=== PATIENT | female | born 1990 | race Caucasian/White ===

== ENCOUNTER 2022-03-30 03:01 | Observation (INO) | payer OTHER, SELFPAY ==
[2022-03-30] VITALS (34 sets, daily range): BP systolic 97–131; BP diastolic 60–84; PULSE 64–129; RESP 14–28; TEMP 36.6–37.4; O2SAT 92–100; BMI 24.0
--- NOTE | ~2022-03-30 | XR_ITS ---
EXAMINATION: XR chest 1V portable DATE: 03/30/2022 03:56 INDICATION: Cough and shortness of breath. TECHNIQUE: A single frontal view of the chest was obtained. COMPARISON: None. FINDINGS: The chest demonstrates clear lungs without pneumonia, pleural effusion, or pneumothorax. Th e heart size is normal. Calcified right hilar and mediastinal lymph nodes are consistent with old gra nulomatous disease. IMPRESSION: 1. No acute cardiopulmonary disease. Reviewed, dictated and finalized at location A. [facility]
--- NOTE | 2022-03-30 03:13 | ECG_ITS ---
Measurements Intervals [place] Rate: 111 P: 60 GA: 124 QRS: 34 QRSD: 79 T: 36 QT: 313 QTc: 427 Interpretive Statements SINUS TACHYCARDIA BORDERLINE T WAVE ABNORMALITY- INFERIOR LEADS BASELINE ARTIFACT- I, II, III, AVR, AVL, AVF ABNORMAL ECG NO PREVIOUS ECG AVAILABLE FOR COMPARISON Electronically Signed On 03-30-2022 6:52:20 [employer] by Karsten Drew D.O.
--- NOTE | 2022-03-30 03:18 | ED.GENADULT ---
HPI - General Adult General Chief complaint: Shortness of Breath/Dyspnea Stated complaint: Shortness of breath Time Seen by Provider: 03/30/22 03:04 Source: patient and RN notes reviewed Mode of arrival: wheelchair Limitations: no limitations History of Present Illness HPI narrative: This is a 31 year old female with history of alpha 1- antitrypsin who presents for evaluation of shortness of breath. She states yesterday she developed body aches. Today she developed low grade fever, cough and runny nose. 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 She has tried her nebulizer and rescue inhaler. She is coughing up green sputum. She reports being hospitalized 2 months ago for respiratory failure and she was on antibiotics. She also states she traveled 3 hours yesterday to come work here. Related Data Home Medications Medication Instructions Recorded Confirmed albuterol sulfate 90 mcg/actuation 2 puff inhalation Q6H PRN sob 03/30/22 03/30/22 aerosol inhaler benzonatate 100 mg capsule 100 mg PO TID PRN Cough 03/30/22 03/30/22 budesonide-formoterol HFA 160 2 puff inhalation Q12H 03/30/22 03/30/22 mcg-4.5 mcg/actuation aerosol inhaler (Symbicort) guaifenesin 1,200 mg tablet, 1,200 mg PO BID 03/30/22 03/30/22 extended release 12 hr (Mucinex) ipratropium 0.5 mg-albuterol 3 mg 3 ml inhalation Q4H PRN sob 03/30/22 03/30/22 (2.5 mg base)/3 mL nebulization soln montelukast 10 mg tablet 10 mg PO HS 03/30/22 03/30/22 prednisone 50 mg tablet 50 mg PO Q12H 03/30/22 03/30/22 Allergies Allergy/AdvReac Type Severity Reaction Status Date / Time NSAIDS (Non-Steroidal Allergy Anaphylaxis Verified 03/30/22 03:15 Anti-Inflamma acetaminophen [From Tylenol] AdvReac Sneezing Verified 03/30/22 03:15 Review of Systems Constitutional: Constitutional: Reports fatigue, Reports fever(s) and Reports weakness ENT: Reports nasal congestion Cardiovascular: Cardiovascular: Denies syncope, Denies rapid heart rate, Denies irregular heart rhythm, Denies leg edema and Reports dyspnea Respiratory: Respiratory: Reports chest congestion, Reports cough, Denies hemoptysis, Denies excessive phlegm production, Reports dyspnea and Reports wheezing Gastrointestinal: Gastrointestinal: Denies abdominal pain, Denies hematochezia, Denies diarrhea and Denies vomiting Genitourinary: Genitourinary: Denies hematuria and Denies dysuria Musculoskeletal: Musculoskeletal: Reports myalgias, Denies joint swelling, Denies loss of height and Denies muscle weakness Neurologic: Denies syncope, Denies focal weakness and Denies weakness PMFSH Past Medical History Medical History (Updated 03/30/22 @ 21:43 by Gay Marin MD) Hwekm-0-fvmptpveeic deficiency Family History Family History (Updated 03/30/22 @ 06:44 by Lin Shields RN) Father Diabetes mellitus Social History Social History (Updated 03/30/22 @ 03:24 by Gay Marin MD) Smoking status: Never smoker Alcohol intake: current Drinks per week: 1 Substance use: never Substance use type: does not use Lack of Transportation: No Lack of Food: Never True Current Housing: I Have Housing Concerned About Future Housing: No Difficulty Paying Gas/Electric Bills: No Difficulty Paying for Meds: No Currently Unemployed: No Education: Associate Degree Difficulty w/ Childcare or Family Care: No Spiritual care concerns: No Exam Const: General: ill appearing Nutritional Appearance: well nourished Orientation/consciousness: patient oriented x3 HENMT: Head: normal to inspection Mouth: Yes Normal oral and palatal mucosa present, Yes lip normal and Yes moist mucous membranes Throat: posterior oropharynx normal Eyes: EOM: EOMs intact bilaterally Chest: Chest palpation & inspection: normal inspection of the chest Resp: Effort & Inspection: tachypneic and no use of accessory muscles Auscultation: rhonchi throu
[2022-03-30] MEDS: SODIUM CHLORIDE 0.9% IV 1,000 ML 999 ML IV CONT (03:22)
[2022-03-30] MEDS: methylPREDNISolone SOD SUCC 125 MG VIAL IV PUSH (03:23)
[2022-03-30] MEDS: IPRATROPIUM BR 0.02% INH SOLN 0.5 MG/2.5 ML VIAL 1 MG INHALATION ×2 (03:25→05:12)
[2022-03-30] MEDS: ALBUTEROL SULFATE NEB 2.5 MG/3 ML INH 10 MG INHALATION ×2 (03:25→05:13)
[2022-03-30 03:31] LABS: Basophils Absolute Auto 0.1 K/mm3 (0.0-0.1); Basophils Percent Auto 0.4 % (0.2-1.2); Eosinophils Absolute Auto 0.6 K/mm3 (0-0.3); Eosinophils Percent Auto 3.4 % (0-4.4); Hematocrit 42.8 % (37.0-47.0); Hemoglobin 14.3 g/dL (12.0-15.0); Immature Granulocyte Absolute 0.08 K/mm3 (0.00-0.031); Immature Granulocyte Percent A 0.5 % (0-0.5); Lymphocytes Absolute Auto 2.86 K/mm3 (0.9-3.2); Lymphocytes Percent Auto 17.4 % (18.3-44.2); Mean Corpuscular HGB Conc 33.4 g/dl (32-36); Mean Corpuscular Hemoglobin 28.3 pg (26-34); Mean Corpuscular Volume 84.6 fl (80-100); Mean Platelet Volume 11.1 fl (7.4-10.4); Monocytes Absolute Auto 1.2 K/mm3 (0.1-0.6); Monocytes Percent Auto 7.5 % (2.6-8.5); Neutrophils Absolute Auto 11.6 K/mm3 (1.3-6.7); Neutrophils Percent Auto 70.8 % (45.5-73.1); Platelet Count Result 333 k/mm3 (150-375); Red Blood Count 5.06 M/mm3 (4.2-5.4); Red Cell Distribution Width 12.8 % (11.5-14.5); White Blood Count 16.4 K/mm3 (4.5-10.0)
[2022-03-30 03:34] LABS: Alveolar/Arterial O2 Gradient 47.4 mmHg; Fractional Inspired Oxygen 21 %; HCO3 ABG 19.3 mEq/l (22.0-26.0); Methemoglobin ABG 0.3 %THb (0-1.5); Modified Allen's Test Pass; Oxygen Content ABG 19.1 %vol (16.0-22.0); Oxyhemoglobin 92.5 % THb (90.0-100.0); PCO2 ABG 27.8 mmHg (35.0-45.0); PO2 FiO2 Ratio Arterial Blood 3.29 %; Reduced Hemoglobin 6.2 %THb (0-5.0); Site Drawn LEFT RADIAL; Total Hemoglobin 14.7 g/dL (12.0-18.0)
[2022-03-30 03:53] LABS: Lactic Acid Reflex 1.4 mmol/L (0.7-2.0)
[2022-03-30 03:53] LABS: INR 1.2; Prothrombin Time 14.3 Seconds (11.1-14.7)
[2022-03-30 03:54] LABS: Partial Thromboplastin Time 33.3 SECONDS (22.3-36.8)
[2022-03-30 04:03] LABS: NT Pro B Type Natriuretic Pept 25 pg/mL (19.9-100)
[2022-03-30 04:17] LABS: Alanine Aminotransferase 21 U/L (6-35); Albumin Level 4.8 g/dL (3.5-5.1); Alkaline Phosphatase 87 U/L (38-126); Anion Gap 9 mmol/L (8-16); Aspartate Amino Transferase 28 U/L (14-36); Bilirubin,Total 1.2 mg/dL (0.2-1.3); Blood Urea Nitrogen 3 mg/dL (7-17); Calcium 9.4 mg/dL (8.4-10.2); Carbon Dioxide 21 mmol/L (22-30); Chloride 104 mmol/L (98-107); Estimated CRCL calculation 85 ml/min; Estimated Glomerular Filt Rate > 60; Glucose 103 mg/dL (65-110); Potassium 3.8 mmol/L (3.4-5.0); Sodium 134 mmol/L (137-145)
[2022-03-30 04:28] LABS: CRP 5.3 mg/dL (<1.0)
[2022-03-30 04:39] LABS: Troponin I < 0.012 ng/mL (0.000-0.034)
[2022-03-30 04:51] LABS: Influenza A QL RT-PCR Negative (Negative); Influenza B QL RT-PCR Negative (Negative); SARS-CoV-2 RNA PCR Negative
--- NOTE | 2022-03-30 05:07 | PM.IMHP ---
H&P: HPI History of Present Illness Date/Time: 03/30/22 05:07 Chief Complaint: Shortness of breath Narrative: This is a 31-year-old female with past medical history significant for alpha-1 antitrypsin deficiency, emphysema. Patient presents to the emergency room due to shortness and nasal of breath, wheezing, cough productive of green color sputum thick and copious. Patient also had a fever we which was low-grade. This has been ongoing for roughly 1 day denies any body aches and pains, no nausea, no vomiting, no abdominal pain. Preliminary workup was significant for WBC count 16,000, patient tested negative for influenza type A influenza type B and COVID-19. Patient is been admitted for further evaluation management and treatment. Review of Systems Review of Systems: Shortness of breath, wheezing, cough productive of greenish sputum copious amount thick secretions. Constitutional: Constitutional: Denies chills, Denies fatigue, Reports fever(s), Denies lethargy, Denies malaise, Denies night sweats, Reports poor appetite and Denies weakness Eyes: Eyes: Denies change in vision ENT: Denies dysphagia, Denies vertigo, Denies dizziness and Denies odynophagia Cardiovascular: Cardiovascular: Denies chest pain, Denies irregular heart rhythm, Denies leg edema and Denies radiating jaw, neck or arm pain Respiratory: Respiratory: Reports change in phlegm color, Reports chest congestion, Reports cough, Reports excessive phlegm production, Reports dyspnea and Reports wheezing Gastrointestinal: Gastrointestinal: Denies abdominal pain, Denies dyspepsia, Denies heartburn, Denies diarrhea, Denies nausea and Denies vomiting Genitourinary: Genitourinary: Denies dysuria Musculoskeletal: Musculoskeletal: Denies back pain, Denies myalgias, Denies arthralgias, Denies joint swelling and Denies muscle weakness Integumentary/Breasts: Skin/Breast: Denies rash Neurologic: Denies focal weakness and Denies Sensory deficit (Neuro) Psychiatric: Psychiatric: Reports no additional psychiatric complaints and Reports as per HPI Endocrine: Endocrine: Denies cold intolerance, Denies flushing, Denies heat intolerance, Denies polyphagia, Denies polydipsia and Denies palpitations Hematologic/Lymphatic: Hematologic/Lymphatic: Reports no additional hematologic/lymphatic complaints and Reports as per HPI Allergic/Immunologic: Allergic/Immunologic: Reports no additional allergic/immunologic complaints and Reports as per [facility] Past Medical History Medical History (Updated 03/30/22 @ 05:34 by Lee Cardoso MD) Ajrgv-7-[id number] deficiency Social History Social History (Updated 03/30/22 @ 03:24 by Gay Marin MD) Smoking status: Never smoker Meds Home Medications and Allergies Allergies Allergy/AdvReac Type Severity Reaction Status Date / Time NSAIDS (Non-Steroidal Allergy Anaphylaxis Verified 03/30/22 03:15 Anti-Inflamma acetaminophen [From Tylenol] AdvReac Sneezing Verified 03/30/22 03:15 Vital Signs Vital Signs - 24 hr 03/30/22 03:27 03/30/22 03:25 03/30/22 03:41 Temperature 99.4 F Pulse Rate 111 H 112 H Respiratory Rate 28 H 28 H Blood Pressure 129/84 Pulse Oximetry 94 Oxygen Delivery Room Air Room Air 03/30/22 03:40 03/30/22 04:08 03/30/22 04:24 Temperature Pulse Rate 116 H 64 118 H Respiratory Rate 22 H 15 17 Blood Pressure Pulse Oximetry 98 100 Oxygen Delivery 03/30/22 03:45 03/30/22 04:00 03/30/22 04:09 Temperature Pulse Rate 113 H 117 H 124 H Respiratory Rate 23 H 20 22 H Blood Pressure 126/78 Pulse Oximetry 98 97 98 Oxygen Delivery 03/30/22 04:13 03/30/22 04:15 03/30/22 04:21 Temperature Pulse Rate 120 H 129 H 123 H Respiratory Rate 21 H 22 H 21 H Blood Pressure 126/78 117/69 Pulse Oximetry 100 98 98 Oxygen Delivery 03/30/22 04:30 03/30/22 04:41 03/30/22 04:45 Temperature Pulse Rate 121 H 121 H 123 H Respiratory Rate 17 18 23 H Blood Pres
--- NOTE | 2022-03-30 06:26 | ADMGEN ---
This patient, Yari Aparicio, was admitted to Medical Room 254-01. Patient/family oriented to hospital policies and general routines including ID bracelet, bed and alarms, visiting hours, pain management, procedures, bathroom and other care routines, personal items, smoking policy, room service/diet, and visiting hours. Information on how to activate the Rapid Response Team has been discussed. Patient/Family are encouraged to report perceived risks to care and to ask questions if they do not understand what they are told or what they should do.
[2022-03-30] MEDS: SODIUM CHLORIDE 0.9% IV 1,000 ML 125 ML IV CONT ×2 (08:46→17:05)
[2022-03-30] MEDS: methylPREDNISolone SOD SUCC 40 MG VIAL IV PUSH ×3 (08:48→20:13)
[2022-03-30] MEDS: ALBUTEROL SULFATE NEB 2.5 MG/3 ML INH 5 MG INHALATION (10:02)
[2022-03-30] MEDS: IPRATROPIUM BR 0.02% INH SOLN 0.5 MG/2.5 ML VIAL INHALATION ×5 (10:02→23:53)
--- NOTE | 2022-03-30 11:41 | PM.IMPN ---
Progress Note: A&P Assessment and Plan (1) Emphysema due to [id number] deficiency: Code(s): J43.8 - Other emphysema; E88.01 - Qxqut-3-khmcyiferyr deficiency Status: Acute Assessment and Plan: Acute on chronic disease. Continue duonebs q.4 hours Antibiotics - IV Rocephin 1 gram Q 24 hours and Azithromycin 500 mg IV Q24 hours. She reports possible pseudomonas infection in the past, however, she does feel improved at this time. Consider escalation of antibiotics to cover pseudomonas if she stagnates or worsens clinically. Sputum culture Blood culture x2 pending Continue solu-medrol 40 IV Q6 hours Regular general diet Daily intake and output Supportive care Monitor CBC and vitals. Chest x-ray reviewed. Will hold off on further imaging unless patient's condition worsened. Plan CODE STATUS: FULL CODE Discharge destination: home when breathing improved. Time Spent With Patient Time with patient: 15 - 25 minutes Subjective Date/time seen: 03/30/22 11:41 Patient lying in bed. She reports her breathing feels slightly better today, still feels tight. She has been hospitalized previously for pneumonia and thinks she may have had a pseudomonas infection. Additionally, she reports previous lung nodules on imaging at another hospital. No records are available for imaging. Review of Systems Review of Systems: All systems reviewed & are unremarkable except as noted in HPI and below Exam Narrative: GENERAL:? Comfortable, no acute distress HEENT: Normocephalic. Pupils equal and round. moist mucous membranes NEURO: Alert and oriented to person, place and time. Speech clear. cooperative. NECK: No JVD. RESPIRATORY: RR unlabored at rest, even. Lung sounds inspiratory and expiratory wheezing in all elaine. Diminished bibasilar lobes. CARDIO: Normal S1 and S2 regular rate and rhythm. No murmurs, gallops or rubs. GI: soft, round, non tender to palpation, bowel sounds present, no guarding SKIN: Warm & dry. No rashes. Normal color for ethnicity. No cyanosis. EXTREMITIES: Grossly normal ROM. no edema, redness or tenderness. Dorsalis pedis pulses +2 bilaterally. Objective Data Vital Signs Vital Signs: Vital Signs - 24 hr 03/30/22 03:27 03/30/22 03:25 03/30/22 03:41 Temperature 99.4 F Pulse Rate 111 H 112 H Respiratory Rate 28 H 28 H Blood Pressure 129/84 Pulse Oximetry 94 Oxygen Delivery Room Air Room Air 03/30/22 03:40 03/30/22 04:08 03/30/22 04:24 Temperature Pulse Rate 116 H 64 118 H Respiratory Rate 22 H 15 17 Blood Pressure Pulse Oximetry 98 100 Oxygen Delivery 03/30/22 03:45 03/30/22 04:00 03/30/22 04:09 Temperature Pulse Rate 113 H 117 H 124 H Respiratory Rate 23 H 20 22 H Blood Pressure 126/78 Pulse Oximetry 98 97 98 Oxygen Delivery 03/30/22 04:13 03/30/22 04:15 03/30/22 04:21 Temperature Pulse Rate 120 H 129 H 123 H Respiratory Rate 21 H 22 H 21 H Blood Pressure 126/78 117/69 Pulse Oximetry 100 98 98 Oxygen Delivery 03/30/22 04:30 03/30/22 04:41 03/30/22 04:45 Temperature Pulse Rate 121 H 121 H 123 H Respiratory Rate 17 18 23 H Blood Pressure 97/74 L Pulse Oximetry 92 94 94 Oxygen Delivery 03/30/22 05:00 03/30/22 05:01 03/30/22 05:10 Temperature Pulse Rate 122 H 120 H 117 H Respiratory Rate 17 14 25 H Blood Pressure 124/64 Pulse Oximetry 95 93 Oxygen Delivery 03/30/22 05:15 03/30/22 05:21 03/30/22 05:30 Temperature Pulse Rate 120 H 108 H 107 H Respiratory Rate 18 16 23 H Blood Pressure 115/74 Pulse Oximetry 95 97 97 Oxygen Delivery 03/30/22 05:41 03/30/22 05:48 03/30/22 06:30 Temperature Pulse Rate 114 H 123 H 124 H Respiratory Rate 22 H 22 H 22 H Blood Pressure 125/60 Pulse Oximetry 97 Oxygen Delivery 03/30/22 06:10 03/30/22 06:58 03/30/22 08:00 Temperature 98.7 F Pulse Rate 119 H Respiratory Rate 20 Blood Pressure 119/78 Pulse Oximetry 100
[2022-03-30] MEDS: ALBUTEROL SULFATE NEB 2.5 MG/3 ML INH INHALATION ×4 (13:17→23:54)
[2022-03-30] MEDS: guaiFENesin 12 HR 600 MG TABCR 1200 MG PO (17:04)
[2022-03-30] MEDS: FLUTICASONE/SALMETEROL 230-21 MCG INHALER 1 PUFF 2 PUFF INHALATION (19:47)
[2022-03-30] MEDS: MONTELUKAST SODIUM 10 MG TABLET PO (20:13)
[2022-03-31] VITALS (14 sets, daily range): BP systolic 128–142; BP diastolic 66–87; PULSE 86–115; RESP 14–20; TEMP 36.4–36.7; O2SAT 94–99
[2022-03-31] MEDS: methylPREDNISolone SOD SUCC 40 MG VIAL IV PUSH ×4 (03:29→20:40)
[2022-03-31] MEDS: cefTRIAXone 2 GM in SODIUM CHLORIDE 0.9% IV 100 ML 200 ML IVPB (03:29)
[2022-03-31] MEDS: SODIUM CHLORIDE 0.9% IV 1,000 ML 125 ML IV CONT (03:30)
[2022-03-31] MEDS: ALBUTEROL SULFATE NEB 2.5 MG/3 ML INH INHALATION ×5 (04:05→21:12)
[2022-03-31] MEDS: IPRATROPIUM BR 0.02% INH SOLN 0.5 MG/2.5 ML VIAL INHALATION ×5 (04:05→21:11)
[2022-03-31 06:10] LABS: Basophils Percent Auto 0.2 % (0.2-1.2); Hemoglobin 12.4 g/dL (12.0-15.0); Immature Granulocyte Absolute 0.11 K/mm3 (0.00-0.031); Immature Granulocyte Percent A 0.9 % (0-0.5); Lymphocytes Percent Auto 5.7 % (18.3-44.2); Mean Corpuscular HGB Conc 32.6 g/dl (32-36); Mean Corpuscular Hemoglobin 28.4 pg (26-34); Mean Corpuscular Volume 87.2 fl (80-100); Mean Platelet Volume 11.5 fl (7.4-10.4); Monocytes Absolute Auto 0.6 K/mm3 (0.1-0.6); Monocytes Percent Auto 4.7 % (2.6-8.5); Neutrophils Absolute Auto 10.9 K/mm3 (1.3-6.7); Neutrophils Percent Auto 88.5 % (45.5-73.1); Platelet Count Result 267 k/mm3 (150-375); Red Blood Count 4.36 M/mm3 (4.2-5.4); Red Cell Distribution Width 12.8 % (11.5-14.5); White Blood Count 12.3 K/mm3 (4.5-10.0)
[2022-03-31 06:49] LABS: Alanine Aminotransferase 18 U/L (6-35); Albumin Level 3.8 g/dL (3.5-5.1); Alkaline Phosphatase 75 U/L (38-126); Anion Gap 6 mmol/L (8-16); Aspartate Amino Transferase 33 U/L (14-36); Bilirubin,Total 0.2 mg/dL (0.2-1.3); Blood Urea Nitrogen 8 mg/dL (7-17); Calcium 8.5 mg/dL (8.4-10.2); Carbon Dioxide 20 mmol/L (22-30); Chloride 113 mmol/L (98-107); Estimated CRCL calculation 98 ml/min; Estimated Glomerular Filt Rate > 60; Glucose 175 mg/dL (65-110); Potassium 4.1 mmol/L (3.4-5.0); Sodium 139 mmol/L (137-145)
--- NOTE | 2022-03-31 07:52 | PM.IMPN ---
Progress Note: A&P Assessment and Plan (1) Emphysema due to bhbht-6-bhrzimkucwy deficiency: Code(s): J43.8 - Other emphysema; E88.01 - Hdmbs-0-hzxdzbgahkp deficiency Status: Acute Assessment and Plan: Acute on chronic disease. Continue duonebs q.4 hours Antibiotic day 2 (started 03/30/22)- IV Rocephin 1 gram Q 24 hours and Azithromycin 500 mg IV Q24 hours. She reports possible pseudomonas infection in the past, however, she does feel improved at this time. Consider escalation of antibiotics to cover pseudomonas if she stagnates or worsens clinically. Blood culture x2 negative to date Continue solu-medrol 40 IV Q6 hours Regular general diet Daily intake and output Supportive care Monitor CBC and vitals- Afebrile, WBC trending down 16 to 12.3. Chest x-ray reviewed. Will hold off on further imaging unless patient's condition worsened. Plan CODE STATUS: FULL CODE Discharge destination: home when breathing improved. Time Spent With Patient Time with patient: 15 - 25 minutes Subjective Date/time seen: 03/31/22 07:52 Her breathing continues to feel better. She feels like she is moving more air, but still tight. Her sputum is thick and white. She denies chest pain. Her heart rate typically runs on the higher end, she states, however, she also does not take nebulizers as frequently, so this may be contributing. No palpitations. Review of Systems Review of Systems: All systems reviewed & are unremarkable except as noted in HPI and below Exam Narrative: GENERAL:? no acute distress HEENT: Normocephalic. Pupils equal and round. moist mucous membranes NEURO: AOx4. Speech clear. cooperative. NECK: No JVD. RESPIRATORY: RR unlabored at rest, even. Lung sounds end- expiratory wheezing anterior and posterior elaine right upper and lower lobes, left upper lobe end expiratory wheezing noted anteriorly. Improved air entry. No rhonchi or rales. Prolonged expiratory phase. CARDIO: Normal S1 and S2 regular rate and rhythm. No murmurs, gallops or rubs. GI: soft, round, non tender to palpation, bowel sounds present SKIN: Warm & dry. No rashes. No cyanosis. EXTREMITIES: Grossly normal ROM. no edema. Objective Data Vital Signs Vital Signs: Vital Signs - 24 hr 03/30/22 08:00 03/30/22 10:02 03/30/22 10:15 Temperature Pulse Rate 114 H 118 H Respiratory Rate 24 H 22 H Blood Pressure Pulse Oximetry Oxygen Delivery Room Air 03/30/22 13:10 03/30/22 13:20 03/30/22 14:00 Temperature 97.8 F Pulse Rate 117 H 119 H 109 H Respiratory Rate 24 H 22 H 20 Blood Pressure 116/74 Pulse Oximetry 100 Oxygen Delivery 03/30/22 17:18 03/30/22 19:48 03/30/22 20:03 Temperature Pulse Rate 109 H 111 H 114 H Respiratory Rate 18 20 20 Blood Pressure Pulse Oximetry Oxygen Delivery 03/30/22 20:03 03/30/22 20:00 03/30/22 21:00 Temperature 98.1 F Pulse Rate 111 H Respiratory Rate 16 Blood Pressure 131/72 Pulse Oximetry 100 99 Oxygen Delivery Room Air Room Air 03/30/22 23:54 03/31/22 00:06 03/31/22 04:05 Temperature Pulse Rate 105 H 111 H 103 H Respiratory Rate 20 20 20 Blood Pressure Pulse Oximetry Oxygen Delivery 03/31/22 04:20 03/31/22 04:00 Temperature 98.1 F Pulse Rate 111 H 110 H Respiratory Rate 20 14 Blood Pressure 129/66 Pulse Oximetry 95 Oxygen Delivery Intake/Output Intake/Output: Intake & Output 03/28/22 03/29/22 03/30/22 03/31/22 23:59 23:59 23:59 23:59 Intake Total 2300 3050 Balance 2300 3050 Meds/Results Medications: Active Medications Generic Name Dose Route Start Last Admin Trade Name Freq PRN Reason Stop Dose Admin Albuterol 2.5 mg 03/30/22 12:00 03/31/22 04:05 Albuterol Sulfate Neb 2.5 Mg/3 Ml Inh INHALATION 2.5 mg Q4HRT JOSE Administration Benzonatate 100 mg 03/30/22 10:21 Benzonatate 100 Mg Capsule PO TID PRN Cough Guaifenesin 1,200 mg 03/30/22 17:00 03/30/22
[2022-03-31] MEDS: guaiFENesin 12 HR 600 MG TABCR 1200 MG PO ×2 (08:04→16:15)
[2022-03-31] MEDS: FLUTICASONE/SALMETEROL 230-21 MCG INHALER 1 PUFF 2 PUFF INHALATION ×2 (08:47→21:30)
[2022-03-31] MEDS: MONTELUKAST SODIUM 10 MG TABLET PO (20:40)
[2022-04-01] VITALS (9 sets, daily range): BP systolic 121; BP diastolic 75; PULSE 87–108; RESP 18–21; TEMP 36.2; O2SAT 96–100
[2022-04-01] MEDS: ALBUTEROL SULFATE NEB 2.5 MG/3 ML INH INHALATION ×3 (00:09→08:40)
[2022-04-01] MEDS: IPRATROPIUM BR 0.02% INH SOLN 0.5 MG/2.5 ML VIAL INHALATION ×3 (00:09→08:40)
[2022-04-01] MEDS: methylPREDNISolone SOD SUCC 40 MG VIAL IV PUSH (03:48)
[2022-04-01] MEDS: cefTRIAXone 2 GM in SODIUM CHLORIDE 0.9% IV 100 ML 200 ML IVPB (03:49)
[2022-04-01] MEDS: guaiFENesin 12 HR 600 MG TABCR 1200 MG PO (08:36)
[2022-04-01] MEDS: FLUTICASONE/SALMETEROL 230-21 MCG INHALER 1 PUFF 2 PUFF INHALATION (08:57)
--- NOTE | 2022-04-01 10:58 | PM.DS ---
DS: Admitting Diagnosis Discharge Date 04/01/2022 1058 Admitting Diagnosis Acute exacerbation COPD DS: Discharge Diagnosis Discharge Diagnosis (1) Emphysema due to kjyyq-[id number] deficiency: Code(s): J43.8 - Other emphysema; E88.01 - Cenxa-6-rwdozqxxqqr deficiency Status: Acute Assessment and Plan: Acute on chronic disease. Continue duonebs q.4 hours Treated with IV Rocephin 1 gram Q 24 hours and Azithromycin 500 mg IV Q24 hours 03/30-04/01/22, then transitioned to oral cefuroxime 500 mg PO BID x 4 more days for 7-day antibiotic course. Blood culture x2 negative to date Treated with solu-medrol 40 IV Q6 hours 03/30-04/01/22. Clinically improved and transitioned to prednisone taper at discharge. Monitor CBC and vitals- Afebrile, WBC trending down 16 to 12.3. 03/30/22 Chest x-ray: No acute cardiopulmonary disease except patient with leukocytosis and increased sputum quantity and change in color. (2) Pneumonia: Qualifiers: Pneumonia type: due to unspecified organism Code(s): J18.9 - Pneumonia, unspecified organism Status: Acute Assessment and Plan: As above DS: Summary Hospital Course Reason for hospitalization: Shortness of breath, acute COPD exacerbation Hospital Course: Yari Aparicio is a 31-year-old female with alpha-1 antitrypsin deficiency emphysema.? She presented to the emergency room for evaluation of shortness of breath, wheezing, and cough with copious, thick green sputum.? She reported low-grade fever, as well. Symptoms were present for approximately 1 day. She denied body aches and pains, nausea, vomiting, or abdominal pain.? Preliminary workup was significant for WBC count 16,000. She tested negative for influenza type A, influenza type B and COVID-19.? She was admitted to the medical floor for further management. She was treated with scheduled duonebs Q4 hours, solu-medrol IV 40 mg Q6 hours, empiric Rocephin 1 gram Q24 hours 03/30-04/01 and Azithromycin 500 mg IV 03/30-04/01. She was transitioned to oral prednisone taper 80 mg x 3 days, 60 mg x 3 days, 40 mg x 3 days, 20 mg x 3 days and oral cefuroxime 500 mg PO BID x 4 more days. She was discharged home in stable condition with improved wheezing and respiratory symptoms. Status at Discharge Cognitive/behavioral status at discharge: Awake, AOx4 Functional status at discharge: independent ambulation Overall status at discharge: patient is progressing back to baseline Time Spent with Patient Time attestation: Total time spent providing and/or coordinating discharge services: Time spent: Greater than 30 minutes Exam Narrative: GENERAL:? no acute distress. Temp 97.2F, HR 106, RR 20, BP 121/75, spO2 96% room air. HEENT: Normocephalic. Pupils equal and round. moist mucous membranes NEURO: AOx4. Speech clear. cooperative. NECK: No JVD. RESPIRATORY: RR unlabored at rest, even. Lung sounds mildly diminished in all elaine bilaterally, improved air entry. No wheezing, rhonchi or rales. CARDIO: Normal S1 and S2 regular rate and rhythm. No murmurs, gallops or rubs. GI: soft, round, non tender to palpation, bowel sounds present SKIN: Warm & dry. No rashes. No cyanosis. EXTREMITIES: Grossly normal ROM. no edema. DS: Data Data Completed and Pending Labs on day of discharge: Preliminary micro results at discharge 03/30/22 03:39 Blood Culture - Preliminary Blood 03/30/22 03:39 Blood Culture - Preliminary Blood Imaging Radiologist's impression: Chest X-Ray? 03/30/22 06:21 IMPRESSION: 1. No acute cardiopulmonary disease. ? Discharge Plan Discharge Attending physician on discharge: Simi Schroeder Consulting providers: Ary Whiteside ; Karsten Drew ; Randy Castillo V. Discharging Clinician: Ary Whiteside Anticipated Discharge Date/Time: 04/01/22 10:49 Patient Disposition: Home, Self-Care Activity: as tolerated Diet: regular Discharge Instructions: Activity:? Gr
== END 2022-04-01 11:49 | disposition home or self-care (01) ==
LOC: ANHED 03:34 → ANH2MED 21:07
PROVIDERS: Admitting Provider Internal Medicine; Emergency Provider General Practice; Visit Provider Student in an Organized Health Care Education/Training Program
DX: J43.8 Other emphysema (principal); E88.01 Alpha-1-antitrypsin deficiency; R53.1 Weakness; R50.9 Fever, unspecified; D72.829 Elevated white blood cell count, unspecified; R94.31 Abnormal electrocardiogram [ECG] [EKG]; F10.90 Alcohol use, unspecified, uncomplicated; Z79.51 Long term (current) use of inhaled steroids; Z79.52 Long term (current) use of systemic steroids; Z79.899 Other long term (current) drug therapy
CPT/HCPCS: 36415; 36600; 71045; 80053; 82375; 82805; 83050; 83605; 83880; 84484; 85025; 85610; 85730; 86140; 87040; 87636; 93005; 94640; 96361; 96365; 96366; 96367; 96375; 96376; 99285; A9270; G0378; J0456; J0696; J2920; J2930; J7030

== ENCOUNTER 2022-05-27 05:08 | Inpatient (IN) | payer OTHER, SELFPAY ==
[2022-05-27] VITALS (52 sets, daily range): BP systolic 99–145; BP diastolic 59–89; PULSE 84–436; RESP 11–38; TEMP 36.3–37.7; O2SAT 91–100; BMI 24.0
--- NOTE | ~2022-05-27 | XR_ITS ---
Clinical Indication: Pneumonia PA and lateral views of the chest: Comparison: 1223 Findings: Suspected focal hazy opacity in the right upper lobe. Left lung clear. Cardiomediastinal s ilhouette is within normal limits. Stable calcified right paratracheal lymph nodes. Bones and soft ti ssues are unremarkable. Impression: Suspected focal hazy opacity right upper lobe, consistent with pneumonia seen on recent CT dated 05/27. Stable calcified right paratracheal lymph nodes. Reviewed, dictated and finalized at location . Impression: Suspected focal hazy opacity right upper lobe, consistent with pneumonia seen o n recent CT dated 05/27/2022. Stable calcified right paratracheal lymph nodes.
--- NOTE | ~2022-05-27 | XR_ITS ---
EXAMINATION: XR chest 1V portable DATE: 05/27/2022 05:54 INDICATION: Cough TECHNIQUE: frontal view of the chest was obtained. COMPARISON: Chest radiograph dated 03/30/2022 FINDINGS: Subtle opacity in the right upper lung zone. Mild curvilinear discoid atelectasis at the left lung ba se. No pleural effusion or pneumothorax. The cardiomediastinal silhouette is normal. Calcified medias tinal lymph nodes consistent with old granulomatous disease. IMPRESSION: 1. Subtle opacity right upper lung zone suspicious for pneumonia. Reviewed, dictated and finalized at location A.
--- NOTE | ~2022-05-27 | CT_ITS ---
EXAMINATION: CTA chest PE protocol DATE: 05/27/2022 10:55 INDICATION: Dyspnea TECHNIQUE: Computed tomography (CT) pulmonary angiogram of the chest was performed with 100 mL Omnipa que-350 intravenous contrast. Additional 3D reconstructions utilizing coronal maximum intensity proje ction (MIP) were performed. The dose-length product was 514.59 mGy-cm. COMPARISON: None FINDINGS: Good contrast opacification of the pulmonary arteries. There is moderate streak artifact from dense c ontrast in the superior vena cava and right atrium. Mild scattered respiratory motion artifact. This decreases sensitivity in some of the smaller subsegmental pulmonary arteries. No pulmonary embolism. There are patchy groundglass opacities most prominent in the right upper and left lower lobes and to lesser degree in the left upper lobe, right lower lobe and lingula. No septal line thickening to sugg est pulmonary edema. No pleural effusion or pneumothorax. Heart size is normal. No pericardial effusi on. Thoracic aorta is normal in caliber with no dissection. Visualized upper abdomen is unremarkable. Mild thoracic spondylosis. IMPRESSION: 1. No pulmonary embolism. 2. Scattered mild bilateral patchy airspace opacities consistent with pneumonia. Reviewed, dictated and finalized at location A. IMPRESSION: 1. No pulmonary embolism. 2. Scattered mild bilateral patchy airspace opacities consistent with pneumonia .
--- NOTE | 2022-05-27 05:37 | ED.GENADULT ---
HPI - General Adult General Chief complaint: Upper Respiratory Infection Stated complaint: SOB, bodyaches, fever Time Seen by Provider: 05/27/22 05:30 History of Present Illness HPI narrative: Patient 31-year-old female who presents the emergency department with chief complaint of fever cough generalized malaise. Patient reports about 1 week ago she started having symptoms and I did several home COVID test these were somewhat positive somewhere negative patient had a PCR test done at [facility] that tested negative patient states that she has continued with coughing generalized body aches has pain in her right ear and a sore throat. Patient reports that she has not taken any Tylenol today as she usually takes this with Benadryl as when she takes p.o. Tylenol she sneezes Related Data Home Medications Medication Instructions Recorded Confirmed albuterol sulfate 90 mcg/actuation 2 puff inhalation Q6H PRN sob 03/30/22 03/30/22 aerosol inhaler benzonatate 100 mg capsule 100 mg PO TID PRN Cough 03/30/22 03/30/22 budesonide-formoterol HFA 160 2 puff inhalation Q12H 03/30/22 03/30/22 mcg-4.5 mcg/actuation aerosol inhaler (Symbicort) guaifenesin 1,200 mg tablet, 1,200 mg PO BID 03/30/22 03/30/22 extended release 12 hr (Mucinex) ipratropium 0.5 mg-albuterol 3 mg 3 ml inhalation Q4H PRN sob 03/30/22 03/30/22 (2.5 mg base)/3 mL nebulization soln montelukast 10 mg tablet 10 mg PO HS 03/30/22 03/30/22 Allergies Allergy/AdvReac Type Severity Reaction Status Date / Time NSAIDS (Non-Steroidal Allergy Anaphylaxis Verified 03/30/22 03:15 Anti-Inflamma acetaminophen [From Tylenol] AdvReac Sneezing Verified 03/30/22 03:15 Review of Systems Review of Systems: A 10 system review of systems was completed on the patient and is negative except for what is stated in the HPI. Nursing and ancillary documentation was reviewed. [facility] Past Medical History Medical History [id number] deficiency Family History Family History Father Diabetes mellitus Social History Social History Smoking status: Never smoker Alcohol intake: current Drinks per week: 1 Substance use: never Substance use type: does not use Lack of Transportation: No Lack of Food: Never True Current Housing: I Have Housing Concerned About Future Housing: No Difficulty Paying Gas/Electric Bills: No Difficulty Paying for Meds: No Currently Unemployed: No Education: Associate Degree Difficulty w/ Childcare or Family Care: No Spiritual care concerns: No Exam Narrative: GENERAL: Well-appearing, well-nourished, and in no acute distress. HEAD: Normocephalic, atraumatic. EYES: PERRLA and EOMI. ENT: Nares clear, no rhinorrhea or epistaxis. Mucous membranes moist. Right tympanic membrane is erythematous NECK: Supple. CHEST: Clear to auscultation. No respiratory distress. HEART: Tachycardic rate and rhythm. No murmur heard. Normal peripheral pulses. ABDOMEN: Soft, nontender, nondistended, normal active bowel sounds. EXTREMITIES: Normal range of motion. No edema. SKIN: Warm, dry, no rash. NEURO: No focal deficits. Alert and oriented x3. PSYCH: Normal mood and affect. Course Vital Signs Vital signs: Vital Signs Temperature 37.7 C H 05/27/22 05:13 Pulse Rate 128 H 05/27/22 05:13 Respiratory Rate 24 H 05/27/22 05:13 Blood Pressure 130/87 05/27/22 05:13 Pulse Oximetry 97 05/27/22 05:13 Oxygen Delivery Room Air 05/27/22 05:13 Temperature 37.7 C H 05/27/22 05:13 Pulse Rate 114 H 05/27/22 06:38 Respiratory Rate 11 L 05/27/22 06:38 Blood Pressure 107/82 05/27/22 06:38 Pulse Oximetry 99 05/27/22 07:08 Oxygen Delivery High Flow Nasal Cannula 05/27/22 07:08 Oxygen Flow Rate 50 05/27/22 07:08
[2022-05-27] MEDS: SODIUM CHLORIDE 0.9% IV 1,000 ML 999 ML IV CONT ×2 (05:58→07:39)
[2022-05-27] MEDS: BENZONATATE 100 MG CAPSULE 200 MG PO (06:01)
[2022-05-27 06:16] LABS: Basophils Absolute Auto 0.1 K/mm3 (0.0-0.1); Basophils Percent Auto 0.5 % (0.2-1.2); Eosinophils Absolute Auto 0.9 K/mm3 (0-0.3); Eosinophils Percent Auto 4.8 % (0-4.4); Hemoglobin 14.3 g/dL (12.0-15.0); Immature Granulocyte Absolute 0.13 K/mm3 (0.00-0.031); Immature Granulocyte Percent A 0.7 % (0-0.5); Lymphocytes Absolute Auto 1.59 K/mm3 (0.9-3.2); Lymphocytes Percent Auto 8.2 % (18.3-44.2); Mean Corpuscular HGB Conc 33.3 g/dl (32-36); Mean Corpuscular Hemoglobin 28.3 pg (26-34); Mean Corpuscular Volume 85.1 fl (80-100); Mean Platelet Volume 10.9 fl (7.4-10.4); Monocytes Percent Auto 5.1 % (2.6-8.5); Neutrophils Absolute Auto 15.7 K/mm3 (1.3-6.7); Neutrophils Percent Auto 80.7 % (45.5-73.1); Platelet Count Result 310 k/mm3 (150-375); Red Blood Count 5.05 M/mm3 (4.2-5.4); Red Cell Distribution Width 12.9 % (11.5-14.5); White Blood Count 19.4 K/mm3 (4.5-10.0)
[2022-05-27 06:24] LABS: Lactic Acid Reflex 1.1 mmol/L (0.7-2.0)
[2022-05-27 06:25] LABS: Alanine Aminotransferase 27 U/L (6-35); Albumin Level 4.5 g/dL (3.5-5.1); Alkaline Phosphatase 77 U/L (38-126); Anion Gap 8 mmol/L (8-16); Aspartate Amino Transferase 30 U/L (14-36); Bilirubin,Total 0.6 mg/dL (0.2-1.3); Blood Urea Nitrogen 9 mg/dL (7-17); Calcium 9.3 mg/dL (8.4-10.2); Carbon Dioxide 21 mmol/L (22-30); Chloride 103 mmol/L (98-107); Estimated CRCL calculation 85 ml/min; Estimated Glomerular Filt Rate > 60; Glucose 120 mg/dL (65-110); Sodium 132 mmol/L (137-145)
[2022-05-27 06:27] LABS: Influenza A QL RT-PCR Negative (Negative); Influenza B QL RT-PCR Negative (Negative); SARS-CoV-2 RNA PCR Negative
[2022-05-27] MEDS: PROCHLORPERAZINE EDISYLATE 10 MG/2 ML VIAL IV PUSH (06:40)
[2022-05-27] MEDS: ALBUTEROL SULFATE NEB 2.5 MG/3 ML INH INHALATION ×5 (06:42→22:01)
[2022-05-27] MEDS: IPRATROPIUM BR 0.02% INH SOLN 0.5 MG/2.5 ML VIAL INHALATION ×5 (06:42→21:50)
[2022-05-27 06:50] LABS: Strep Group A RT-PCR NOT DETECTED (Negative)
[2022-05-27] MEDS: methylPREDNISolone SOD SUCC 125 MG VIAL IV PUSH (06:56)
[2022-05-27] MEDS: LORazepam INJ (*CRX) 2 MG/ML VIAL 0.5 MG IV PUSH ×2 (07:02→07:39)
[2022-05-27] MEDS: MAGNESIUM SULF 2 GM/WATER 50ML 2 GM/50 ML BAG IVPB (07:38)
[2022-05-27] MEDS: ALBUTEROL SULFATE NEB 2.5 MG/3 ML INH 10 MG INHALATION (07:47)
[2022-05-27] MEDS: IPRATROPIUM BR 0.02% INH SOLN 0.5 MG/2.5 ML VIAL 2 MG INHALATION (07:47)
[2022-05-27] MEDS: SODIUM CHLORIDE 0.9% IV 1,000 ML 125 ML IV CONT ×2 (08:59→16:29)
[2022-05-27 10:03] LABS: Beta HCG Quantitative < 2.39 mIU/ML
--- NOTE | 2022-05-27 10:50 | PC.NURSE ---
RT HERE TO ASSIST WITH TRANSPORT. PT TAKEN TO CT SCAN THEN WILL GO DIRECTLY UP TO 232
[2022-05-27] MEDS: methylPREDNISolone SOD SUCC 125 MG VIAL 60 MG IV PUSH ×2 (13:06→17:43)
--- NOTE | 2022-05-27 14:02 | PM.IMHP ---
H&P: HPI History of Present Illness Date/Time: 05/27/22 14:02 Chief Complaint: Upper respiratory infection Narrative: This is a 31-year-old female patient who has had a fever cough and generalized malaise for over 1 week. The patient stated that her symptoms actually started about 2 weeks ago. The patient stated initially she took a COVID test was positive then she has taken some since then have been negative. The patient has been taking Mucinex, Benadryl and an inhaler at home without relief. The patient stated that she did not sleep very well last night at all. She was having difficulty breathing. The patient has been taking Tylenol as well. Her white count is 19.4. Neutrophils 80.7. Sodium is 132. Influenza a B RSV and COVID are all negative. Group strep is negative as well. Chest x-ray was read as Subtle opacity right upper lung zone suspicious for pneumonia. Chest CTA was read as. No pulmonary embolism. 2. Scattered mild bilateral patchy airspace opacities consistent with pneumonia. The patient was given normal saline, Compazine, benzonatate, neb treatments, Tylenol, Rocephin, magnesium, Ativan, and Solu-Medrol. Patient's settings are 12/6. Rate is 12 with 35%. The patient stated that she is feeling much better. The patient is being admitted to inpatient on the date of service of 05/27/2022. Review of Systems Review of Systems: See HPI All systems reviewed & are unremarkable except as noted in HPI and below Constitutional: Constitutional: Reports as per HPI and Reports no additional constitutional complaints Eyes: Eyes: Reports as per HPI and Reports no additional eye complaints ENT: Reports system reviewed and no additional complaints, except as documented and Reports Normal hearing present Cardiovascular: Cardiovascular: Reports no additional cardiovascular complaints Respiratory: Respiratory: Reports no additional respiratory complaints and Reports no additional respiratory complaints Gastrointestinal: Gastrointestinal: Reports as per HPI and Reports no additional gastrointestinal complaints Musculoskeletal: Musculoskeletal: Reports no additional musculoskeletal complaints Integumentary/Breasts: Skin/Breast: Reports system reviewed and no additional complaints, except as docu and Reports as per HPI Neurologic: Reports system reviewed and no additional complaints, except as documented, Reports as per HPI and Reports Normal hearing present Psychiatric: Psychiatric: Reports no additional psychiatric complaints and Reports as per HPI Endocrine: Endocrine: Reports no additional endocrine complaints Hematologic/Lymphatic: Hematologic/Lymphatic: Reports no additional hematologic/lymphatic complaints Allergic/Immunologic: Allergic/Immunologic: Reports no additional allergic/immunologic complaints [facility] Past Medical History Medical History (Updated 05/27/22 @ 16:45 by Muara Cook NP) [id number] deficiency Asthma Surgical History Surgical History (Updated 05/27/22 @ 16:46 by Maura Cook NP) H/O dilation and curettage H/O hand surgery H/O nasal polypectomy Family History Family History Father Diabetes mellitus Social History Social History (Updated 05/27/22 @ 16:46 by Maura Cook NP) Social History: Patient is single and has 2 children. 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 Code status full code Smoking status: Never smoker Alcohol intake: unknown Drinks per week: 1 Substance use: unknown Substance use type: does not use Lack of Transportation: No Lack of Food: Never True Current Housing: I Have Housing Concerned About Future Housing: No Difficulty Paying Gas/Electric Bills: No Difficulty Paying for Meds: No Currently Unemployed: No Education: Associate Degree Difficulty w/ Childcare or Family Care: No Spiritual care concerns: No Meds Home Medications and Allergies
--- NOTE | 2022-05-27 14:23 | ADMGEN ---
This patient, Yari Aparicio, was admitted to IMU Room 232-01 at 1055. Patient/family oriented to hospital policies and general routines including ID bracelet, bed and alarms, visiting hours, pain management, procedures, bathroom and other care routines, personal items, smoking policy, room service/diet, and visiting hours. Information on how to activate the Rapid Response Team has been discussed. Patient/Family are encouraged to report perceived risks to care and to ask questions if they do not understand what they are told or what they should do.
[2022-05-27] MEDS: guaiFENesin 12 HR 600 MG TABCR 1200 MG PO ×2 (17:42→20:55)
[2022-05-27 19:29] LABS: Appearance Urine Clear (Clear); Bilirubin Urine Negative (Negative); Blood Urine Negative (Negative); Color Urine Yellow (Yellow); Glucose Urine UA 1+ mg/dL (Negative); Ketones Urine Negative (Negative); Leukocyte Esterase Ur Negative LEU/UL (Negative); Nitrate Urine Negative (Negative); Protein Urine Negative (Negative); Specific Grav Ur 1.005 (1.001-1.035); Urobilinogen Urine 0.2 mg/dL (<2.0); pH Urine 7.5 (5.0-9.0)
[2022-05-27 19:32] LABS: Add Urine Microscopic? NO
[2022-05-28] VITALS (21 sets, daily range): BP systolic 112–131; BP diastolic 63–86; PULSE 88–120; RESP 12–22; TEMP 35.9–36.7; O2SAT 94–98
[2022-05-28] MEDS: methylPREDNISolone SOD SUCC 125 MG VIAL 60 MG IV PUSH ×3 (00:09→15:12)
[2022-05-28] MEDS: IPRATROPIUM BR 0.02% INH SOLN 0.5 MG/2.5 ML VIAL INHALATION ×5 (04:22→20:51)
[2022-05-28] MEDS: ALBUTEROL SULFATE NEB 2.5 MG/3 ML INH INHALATION ×5 (04:22→20:51)
[2022-05-28 05:01] LABS: Basophils Percent Auto 0.2 % (0.2-1.2); Hematocrit 41.1 % (37.0-47.0); Hemoglobin 13.9 g/dL (12.0-15.0); Immature Granulocyte Absolute 0.09 K/mm3 (0.00-0.031); Immature Granulocyte Percent A 0.6 % (0-0.5); Lymphocytes Absolute Auto 0.83 K/mm3 (0.9-3.2); Lymphocytes Percent Auto 5.2 % (18.3-44.2); Mean Corpuscular HGB Conc 33.8 g/dl (32-36); Mean Corpuscular Hemoglobin 28.5 pg (26-34); Mean Corpuscular Volume 84.4 fl (80-100); Mean Platelet Volume 10.9 fl (7.4-10.4); Monocytes Absolute Auto 0.4 K/mm3 (0.1-0.6); Monocytes Percent Auto 2.7 % (2.6-8.5); Neutrophils Absolute Auto 14.4 K/mm3 (1.3-6.7); Neutrophils Percent Auto 91.3 % (45.5-73.1); Platelet Count Result 276 k/mm3 (150-375); Red Blood Count 4.87 M/mm3 (4.2-5.4); Red Cell Distribution Width 12.7 % (11.5-14.5); White Blood Count 15.8 K/mm3 (4.5-10.0)
[2022-05-28 05:13] LABS: Lactic Acid Reflex 1.9 mmol/L (0.7-2.0)
[2022-05-28 05:15] LABS: Alanine Aminotransferase 26 U/L (6-35); Albumin Level 4.2 g/dL (3.5-5.1); Alkaline Phosphatase 69 U/L (38-126); Anion Gap 6 mmol/L (8-16); Aspartate Amino Transferase 26 U/L (14-36); Bilirubin,Total 0.3 mg/dL (0.2-1.3); Blood Urea Nitrogen 6 mg/dL (7-17); Calcium 9.1 mg/dL (8.4-10.2); Carbon Dioxide 21 mmol/L (22-30); Chloride 109 mmol/L (98-107); Estimated CRCL calculation 115 ml/min; Estimated Glomerular Filt Rate > 60; Glucose 152 mg/dL (65-110); Magnesium 2.1 mg/dL (1.6-2.3); Sodium 136 mmol/L (137-145)
[2022-05-28 07:46] LABS: Free T4 Free Thyroxine Reflex 1.18 ng/dL (0.78-2.19)
[2022-05-28 09:15] LABS: Total Triiodothyronine (T3) 1.07 NG/ML (0.97-1.69)
[2022-05-28] MEDS: ENOXAPARIN 40 MG/0.4 ML SYRINGE SUB-Q (09:57)
[2022-05-28] MEDS: guaiFENesin 12 HR 600 MG TABCR 1200 MG PO ×2 (09:57→20:27)
--- NOTE | 2022-05-28 17:35 | PM.IMPN ---
Progress Note: A&P Assessment and Plan (1) Pneumonia: Qualifiers: Pneumonia type: due to unspecified organism Code(s): J18.9 - Pneumonia, unspecified organism Status: Acute Assessment and Plan: Continue with azithromycin Rocephin Continue with nebulizer treatment Titrate antibiotic according to culture and sensitive blood and sputum cultures are pending 05/28/2022 interval history: 31-year-old female with no significant history cardiopulmonary presented with shortness of breath hypoxic is found to have pneumonia, patient most likely has community-acquired pneumonia being treated with a ceftriaxone and azithromycin upon arrival for some wheezing patient was started on methylprednisone her symptoms improved will taper it down to prednisone today will continue to monitor repeat x-ray tomorrow and further recommendation to follow. (2) Asthma: Code(s): J45.909 - Unspecified asthma, uncomplicated Status: Acute Assessment and Plan: The patient was given magnesium in the emergency room. The patient is off of the BiPAP now. She has interest in eating so I will stop her IV fluids. Subjective Date/time seen: 05/28/22 17:35 Upper respiratory infection HPI-Narrative: This is a 31-year-old female patient who has had a fever cough and generalized malaise for over 1 week.? The patient stated that her symptoms actually started about 2 weeks ago.? The patient stated initially she took a COVID test was positive then she has taken some since then have been negative.? The patient has been taking Mucinex, Benadryl and an inhaler at home without relief.? The patient stated that she did not sleep very well last night at all.? She was having difficulty breathing.? The patient has been taking Tylenol as well.? Her white count is 19.4.? Neutrophils 80.7.? Sodium is 132.? Influenza a B RSV and COVID are all negative.? Group strep is negative as well.? Chest x-ray was read as?Subtle opacity right upper lung zone suspicious for pneumonia.? Chest CTA was read as. No pulmonary embolism. 2. Scattered mild bilateral patchy airspace opacities consistent with pneumonia. The patient was given normal saline, Compazine, benzonatate, neb treatments, Tylenol, Rocephin, magnesium, Ativan, and Solu-Medrol.? Patient's settings are 12/6.? Rate is 12 with 35%.? The patient stated that she is feeling much better.? 05/28/2022 interval history: 31-year-old female with no significant history cardiopulmonary presented with shortness of breath hypoxic is found to have pneumonia, patient most likely has community-acquired pneumonia being treated with a ceftriaxone and azithromycin upon arrival for some wheezing patient was started on methylprednisone her symptoms improved will taper it down to prednisone today will continue to monitor repeat x-ray tomorrow and further recommendation to follow. Review of Systems Review of Systems: All systems reviewed & are unremarkable except as noted in HPI and below Exam Narrative: Patient is comfortable, NAD HEENT: eyes are clear and none icteric LUNGS: normal respiratory effort ABD: not distended Lower extremities: no edema SKIN: nonjaundiced Neuro: grossly intact. Objective Data Vital Signs Vital Signs: Vital Signs - 24 hr 05/27/22 18:00 05/27/22 20:00 05/27/22 20:00 Temperature 97.6 F Pulse Rate 100 113 H Respiratory Rate 20 Blood Pressure 115/59 L Pulse Oximetry 98 97 Oxygen Delivery Nasal Cannula Oxygen Flow Rate 2 05/27/22 20:00 05/27/22 21:50 05/27/22 22:05 Temperature Pulse Rate 115 H 84 89 Respiratory Rate 18 18 Blood Pressure Pulse Oximetry Oxygen Delivery Oxygen Flow Rate 05/27/22 22:08 05/27/22 22:00 05/27/22 23:39 Temperature 98.0 F Pulse Rate 109 H 115 H Respiratory Rate 20 Blood Pressure 122/67 Pulse Oximetry 96 98 Oxygen Delivery High Flow Nasal Cannula Oxygen Flow Rate 8 05/28/22 00:00 05/28/22 00:00
--- NOTE | 2022-05-28 18:54 | PC.NURSE ---
This patient, Yari Aparicio, was transferred to [facility] on 05/28/22 at 1854. Personal belongings sent with patient. Report given to Tejal GILMAN. Appropriate documentation sent with patient.
--- NOTE | 2022-05-28 19:59 | PC.NURSE ---
1930 RECEIVED PT FROM IMU PER WHEELCHAIR. VOICES NO C/O.
[2022-05-29] VITALS (18 sets, daily range): BP systolic 114–124; BP diastolic 54–87; PULSE 80–108; RESP 16–18; TEMP 36.6–36.7; O2SAT 95–97
[2022-05-29] MEDS: IPRATROPIUM BR 0.02% INH SOLN 0.5 MG/2.5 ML VIAL INHALATION ×7 (00:34→23:40)
[2022-05-29] MEDS: ALBUTEROL SULFATE NEB 2.5 MG/3 ML INH INHALATION ×7 (00:35→23:40)
[2022-05-29 07:30] LABS: Hematocrit 42.1 % (37.0-47.0); Hemoglobin 13.6 g/dL (12.0-15.0); Mean Corpuscular HGB Conc 32.3 g/dl (32-36); Mean Corpuscular Hemoglobin 28.2 pg (26-34); Mean Corpuscular Volume 87.2 fl (80-100); Mean Platelet Volume 10.9 fl (7.4-10.4); Platelet Count Result 318 k/mm3 (150-375); Red Blood Count 4.83 M/mm3 (4.2-5.4); Red Cell Distribution Width 13.1 % (11.5-14.5); White Blood Count 18.1 K/mm3 (4.5-10.0)
[2022-05-29 07:43] LABS: Anion Gap 5 mmol/L (8-16); Blood Urea Nitrogen 10 mg/dL (7-17); Calcium 8.8 mg/dL (8.4-10.2); Carbon Dioxide 27 mmol/L (22-30); Chloride 110 mmol/L (98-107); Estimated CRCL calculation 98 ml/min; Estimated Glomerular Filt Rate > 60; Glucose 99 mg/dL (65-110); Magnesium 2.2 mg/dL (1.6-2.3); Potassium 3.8 mmol/L (3.4-5.0); Sodium 142 mmol/L (137-145)
[2022-05-29] MEDS: predniSONE 20 MG TABLET 60 MG PO (08:38)
[2022-05-29] MEDS: guaiFENesin 12 HR 600 MG TABCR 1200 MG PO ×2 (08:39→20:29)
--- NOTE | 2022-05-29 14:06 | PM.IMPN ---
Progress Note: A&P Assessment and Plan (1) Pneumonia: Qualifiers: Pneumonia type: due to unspecified organism Code(s): J18.9 - Pneumonia, unspecified organism Status: Acute Assessment and Plan: Continue with azithromycin Rocephin Continue with nebulizer treatment Titrate antibiotic according to culture and sensitive blood and sputum cultures are pending 05/29/2022 interval history: 31-year-old female with no significant history of cardiopulmonary presented with shortness of breath hypoxic is found to have pneumonia, patient most likely has community-acquired pneumonia being treated with a ceftriaxone and azithromycin upon arrival for some wheezing patient was started on methylprednisone her symptoms improved will taper it down to prednisone today, repeat chest x-ray today shows persistent pneumonia however patient's clinical symptoms are improved will continue to monitor and reassess tomorrow. (2) Asthma: Code(s): J45.909 - Unspecified asthma, uncomplicated Status: Acute Assessment and Plan: The patient was given magnesium in the emergency room. The patient is off of the BiPAP now. She has interest in eating so I will stop her IV fluids. Subjective Date/time seen: 05/29/22 14:06 Continue with azithromycin Rocephin Continue with nebulizer treatment Titrate antibiotic according to culture and sensitive blood and sputum cultures are pending 05/29/2022 interval history: 31-year-old female with no significant history of cardiopulmonary presented with shortness of breath hypoxic is found to have pneumonia, patient most likely has community-acquired pneumonia being treated with a ceftriaxone and azithromycin upon arrival for some wheezing patient was started on methylprednisone her symptoms improved will taper it down to prednisone today, repeat chest x-ray today shows persistent pneumonia however patient's clinical symptoms are improved will continue to monitor and reassess tomorrow. Review of Systems Review of Systems: All systems reviewed & are unremarkable except as noted in HPI and below Exam Narrative: Patient is comfortable, NAD HEENT: eyes are clear and none icteric LUNGS: normal respiratory effort ABD: not distended Lower extremities: no edema SKIN: nonjaundiced Neuro: grossly intact. Objective Data Vital Signs Vital Signs: Vital Signs - 24 hr 05/28/22 15:35 05/28/22 15:49 05/28/22 16:27 Temperature 97.2 F L Pulse Rate 105 H 107 H 102 H Respiratory Rate 16 16 20 Blood Pressure 125/86 Pulse Oximetry 97 Oxygen Delivery 05/28/22 19:57 05/28/22 20:53 05/28/22 21:07 Temperature 98.0 F Pulse Rate 109 H 101 H 104 H Respiratory Rate 20 16 16 Blood Pressure 123/78 Pulse Oximetry 96 Oxygen Delivery 05/29/22 00:35 05/29/22 00:46 05/29/22 04:33 Temperature Pulse Rate 103 H 106 H 108 H Respiratory Rate 16 16 16 Blood Pressure Pulse Oximetry Oxygen Delivery 05/29/22 04:44 05/29/22 06:00 05/29/22 08:45 Temperature 98.1 F Pulse Rate 105 H 99 97 Respiratory Rate 16 18 16 Blood Pressure 118/54 L Pulse Oximetry 95 Oxygen Delivery 05/29/22 08:53 05/29/22 09:12 05/29/22 10:51 Temperature Pulse Rate 94 90 Respiratory Rate 16 16 Blood Pressure Pulse Oximetry 95 Oxygen Delivery Room Air 05/29/22 08:30 05/29/22 11:05 Temperature Pulse Rate 96 Respiratory Rate 16 Blood Pressure Pulse Oximetry Oxygen Delivery Room Air Intake/Output Intake/Output: Intake & Output 05/26/22 05/27/22 05/28/22 05/29/22 22:59 23:59 23:59 23:59 Intake Total 1790 1150 Output Total 1900 4 Balance -110 1146 Meds/Results Medications: Active Medications Generic Name Dose Route Start Last Admin Trade Name Freq PRN Reason Stop Dose Admin Albuterol 2.5 mg 05/28/22 08:00 05/29/22 10:50 Albuterol Sulfate Neb 2.5 Mg/3 Ml Inh INHALATION 2.5 mg Q4HRT [facility] Administratio
[2022-05-29] MEDS: MONTELUKAST SODIUM 10 MG TABLET PO (20:30)
[2022-05-30] VITALS (7 sets, daily range): BP systolic 108; BP diastolic 72; PULSE 76–95; RESP 17–18; TEMP 36.8; O2SAT 95–96
[2022-05-30] MEDS: IPRATROPIUM BR 0.02% INH SOLN 0.5 MG/2.5 ML VIAL INHALATION ×3 (04:04→11:38)
[2022-05-30] MEDS: ALBUTEROL SULFATE NEB 2.5 MG/3 ML INH INHALATION ×3 (04:04→11:38)
[2022-05-30 05:39] LABS: Hematocrit 39.4 % (37.0-47.0); Hemoglobin 12.9 g/dL (12.0-15.0); Mean Corpuscular HGB Conc 32.7 g/dl (32-36); Mean Corpuscular Volume 85.7 fl (80-100); Platelet Count Result 295 k/mm3 (150-375); Red Cell Distribution Width 12.9 % (11.5-14.5)
[2022-05-30 05:42] LABS: Anion Gap 4 mmol/L (8-16); Blood Urea Nitrogen 9 mg/dL (7-17); Calcium 8.4 mg/dL (8.4-10.2); Carbon Dioxide 24 mmol/L (22-30); Chloride 108 mmol/L (98-107); Estimated CRCL calculation 85 ml/min; Estimated Glomerular Filt Rate > 60; Glucose 91 mg/dL (65-110); Potassium 3.5 mmol/L (3.4-5.0); Sodium 136 mmol/L (137-145)
[2022-05-30] MEDS: predniSONE 20 MG TABLET 60 MG PO (08:19)
[2022-05-30] MEDS: guaiFENesin 12 HR 600 MG TABCR 1200 MG PO (08:20)
--- NOTE | 2022-05-30 11:43 | PM.DS ---
DS: Admitting Diagnosis Discharge Date 05/30/2022 Admitting Diagnosis Upper respiratory infection DS: Discharge Diagnosis Discharge Diagnosis (1) Pneumonia: Qualifiers: Pneumonia type: due to unspecified organism Code(s): J18.9 - Pneumonia, unspecified organism Status: Acute Assessment and Plan: Continue with azithromycin Rocephin Continue with nebulizer treatment Titrate antibiotic according to culture and sensitive blood and sputum cultures are pending 05/29/2022 interval history: 31-year-old female with no significant history of cardiopulmonary presented with shortness of breath hypoxic is found to have pneumonia, patient most likely has community-acquired pneumonia being treated with a ceftriaxone and azithromycin upon arrival for some wheezing patient was started on methylprednisone her symptoms improved will taper it down to prednisone today, repeat chest x-ray today shows persistent pneumonia however patient's clinical symptoms are improved will continue to monitor and reassess tomorrow. (2) Asthma: Code(s): J45.909 - Unspecified asthma, uncomplicated Status: Acute Assessment and Plan: The patient was given magnesium in the emergency room. The patient is off of the BiPAP now. She has interest in eating so I will stop her IV fluids. DS: Summary Hospital Course Reason for hospitalization: Upper respiratory infection Narrative: This is a 31-year-old female patient who has had a fever cough and generalized malaise for over 1 week.? The patient stated that her symptoms actually started about 2 weeks ago.? The patient stated initially she took a COVID test was positive then she has taken some since then have been negative.? The patient has been taking Mucinex, Benadryl and an inhaler at home without relief.? The patient stated that she did not sleep very well last night at all.? She was having difficulty breathing.? The patient has been taking Tylenol as well.? Her white count is 19.4.? Neutrophils 80.7.? Sodium is 132.? Influenza a B RSV and COVID are all negative.? Group strep is negative as well.? Chest x-ray was read as?Subtle opacity right upper lung zone suspicious for pneumonia.? Chest CTA was read as. No pulmonary embolism. 2. Scattered mild bilateral patchy airspace opacities consistent with pneumonia. The patient was given normal saline, Compazine, benzonatate, neb treatments, Tylenol, Rocephin, magnesium, Ativan, and Solu-Medrol.? Patient's settings are 02/20.? Rate is 12 with 35%.? The patient stated that she is feeling much better.? Hospital Course: 31-year-old female with no significant history of cardiopulmonary presented with shortness of breath hypoxic is found to have pneumonia, patient most likely has community-acquired pneumonia being treated with a ceftriaxone and azithromycin upon arrival for some wheezing patient was started on methylprednisone her symptoms improved will taper it down to prednisone today,? repeat chest x-ray today shows persistent pneumonia however patient's clinical symptoms are improved will continue to monitor and reassess tomorrow. today patient clinical sysmptom have improved, and stable, will discharge patient today. Time Spent with Patient Time attestation: Total time spent providing and/or coordinating discharge services: Exam Narrative: Patient is comfortable, NAD HEENT: eyes are clear and none icteric LUNGS: normal respiratory effort ABD: not distended Lower extremities: no edema SKIN: nonjaundiced Neuro: grossly intact. DS: Data Data Completed and Pending Labs on day of discharge: Labs from last 24 hours 05/30/22 05/30/22 05:09 05:09 WBC 11.0 H RBC 4.60 Hgb 12.9 Hct 39.4 MCV 85.7 MCH 28.0 MCHC 32.7 RDW 12.9 Plt Count 295 MPV 11.0 H Sodium 136 L Potassium 3.5 Chloride 108 H Carbon Dioxide 24 Anion Gap 4 L BUN 9 Creatinine 0.70 Estim Creat Clear Calc 85 Estimated GFR
== END 2022-05-30 12:13 | disposition home or self-care (01) | DRG 195 ==
LOC: ANHED 07:19 → ANHIMU 10:12 → ANH2MED 05-28 18:56
PROVIDERS: Emergency Medicine; Nurse Practitioner; Admitting Provider Internal Medicine; Emergency Provider Emergency Medicine; Visit Provider Family Medicine
DX: J18.9 Pneumonia, unspecified organism (principal); E88.01 Alpha-1-antitrypsin deficiency; J43.8 Other emphysema; Z20.822 Contact with and (suspected) exposure to COVID-19; Z28.21 Immunization not carried out because of patient refusal
CPT/HCPCS: 36415; 71045; 71046; 71275; 80048; 80053; 81003; 83605; 83735; 84145; 84439; 84443; 84480; 84702; 85025; 85027; 87040; 87070; 87205; 87636; 87651; 94002; 94003; 94640; 96361; 96374; 96375; 99285; A9270; J0131; J0456; J0696; J0780; J1650; J2060; J2930; J3475; J7030; J7512; Q9967

== ENCOUNTER 2022-10-07 07:34 | Emergency (ER) | payer OTHER, SELFPAY ==
[2022-10-07] VITALS (10 sets, daily range): BP systolic 119–150; BP diastolic 60–84; PULSE 82–116; RESP 16–26; TEMP 36.4; O2SAT 95–100
--- NOTE | ~2022-10-07 | XR_ITS ---
EXAMINATION: XR chest 1V portable 10/07/2022 08:17 INDICATION: Shortness of breath. PROCEDURE: AP portable chest COMPARISON: 06/13/2022 FINDINGS: The lungs are clear. The cardiomediastinal silhouette is within normal limits. There are no pleural effusions. There is no pneumothorax suspected. IMPRESSION: 1: NO ACUTE CARDIOPULMONARY DISEASE. Reviewed, dictated and finalized at location A.
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
[2022-10-07] MEDS: methylPREDNISolone SOD SUCC 125 MG VIAL IV PUSH (07:46)
[2022-10-07 07:49] LABS: Basophils Absolute Auto 0.1 K/mm3 (0.0-0.1); Basophils Percent Auto 0.6 % (0.2-1.2); Eosinophils Absolute Auto 0.9 K/mm3 (0-0.3); Eosinophils Percent Auto 9.1 % (0-4.4); Hemoglobin 14.2 g/dL (12.0-15.0); Immature Granulocyte Absolute 0.05 K/mm3 (0.00-0.031); Immature Granulocyte Percent A 0.5 % (0-0.5); Lymphocytes Absolute Auto 2.92 K/mm3 (0.9-3.2); Lymphocytes Percent Auto 28.3 % (18.3-44.2); Mean Corpuscular HGB Conc 34.6 g/dl (32-36); Mean Corpuscular Hemoglobin 29.1 pg (26-34); Mean Platelet Volume 10.7 fl (7.4-10.4); Monocytes Absolute Auto 0.7 K/mm3 (0.1-0.6); Monocytes Percent Auto 7.2 % (2.6-8.5); Neutrophils Absolute Auto 5.6 K/mm3 (1.3-6.7); Neutrophils Percent Auto 54.3 % (45.5-73.1); Platelet Count Result 279 k/mm3 (150-375); Red Blood Count 4.88 M/mm3 (4.2-5.4); Red Cell Distribution Width 12.8 % (11.5-14.5); White Blood Count 10.3 K/mm3 (4.5-10.0)
[2022-10-07] MEDS: ALBUTEROL SULFATE NEB 2.5 MG/3 ML INH 5 MG INHALATION (07:56)
[2022-10-07] MEDS: IPRATROPIUM BR 0.02% INH SOLN 0.5 MG/2.5 ML VIAL 1 MG INHALATION (07:56)
[2022-10-07 07:59] LABS: Alanine Aminotransferase 23 U/L (6-35); Albumin Level 4.4 g/dL (3.5-5.1); Alkaline Phosphatase 64 U/L (38-126); Anion Gap 10 mmol/L (8-16); Aspartate Amino Transferase 25 U/L (14-36); Bilirubin,Total 0.3 mg/dL (0.2-1.3); Blood Urea Nitrogen 10 mg/dL (7-17); Calcium 9.3 mg/dL (8.4-10.2); Carbon Dioxide 19 mmol/L (22-30); Chloride 108 mmol/L (98-107); Estimated CRCL calculation 84 ml/min; Estimated Glomerular Filt Rate > 60; Glucose 94 mg/dL (65-110); Potassium 3.9 mmol/L (3.4-5.0); Sodium 137 mmol/L (137-145)
[2022-10-07 08:36] LABS: D Dimer < 0.22 ug/mL (<0.48)
== END 2022-10-07 09:12 | disposition home or self-care (01) ==
PROVIDERS: Emergency Provider Emergency Medicine
DX: J43.8 Other emphysema (principal); E88.01 Alpha-1-antitrypsin deficiency; J45.909 Unspecified asthma, uncomplicated; Z87.01 Personal history of pneumonia (recurrent)
CPT/HCPCS: 36415; 71045; 80053; 85025; 85380; 94640; 96374; 99284; J2930

== ENCOUNTER 2023-10-05 10:28 | Observation (INO) | payer OTHER, SELFPAY ==
[2023-10-05] VITALS (17 sets, daily range): BP systolic 104–138; BP diastolic 62–87; PULSE 100–141; RESP 18–26; TEMP 36.4–36.9; O2SAT 92–100; BMI 25.3
--- NOTE | ~2023-10-05 | XR_ITS ---
EXAMINATION: XR chest 2V 10/05/2023 10:56 INDICATION: Shortness of breath PROCEDURE: 2 view chest COMPARISON: Comparison to multiple prior studies sequentially, with oldest reviewed study dated 05/27. FINDINGS: The lungs are clear. There are calcified mediastinal lymph nodes, consistent with chronic g ranulomatous disease. The cardiomediastinal silhouette is within normal limits. There are no pleural effusions. There is no pneumothorax suspected. IMPRESSION: 1: NO ACUTE CARDIOPULMONARY DISEASE. Reviewed, dictated and finalized at location B.
--- NOTE | 2023-10-05 10:35 | ECG_ITS ---
Test Date: 2023-10-05 10:36:04 Measurements Intervals [place] Rate: 139 P: 67 VA: 112 QRS: 51 QRSD: 81 T: 78 QT: 329 QTc: 501 Interpretive Statements SINUS TACHYCARDIA NONSPECIFIC ST & T-WAVE ABNORMALITY- DIFFUSE LEADS BASELINE ARTIFACT- I, II, III, AVR, AVL, AVF, V1-V6 ABNORMAL ECG No previous ECG available for comparison Electronically Signed On 10-05-2023 15:23:00 CDT by Karsten Drew D.O.
[2023-10-05 11:13] LABS: Basophils Absolute Auto 0.1 K/mm3 (0.0-0.1); Basophils Percent Auto 0.4 % (0.2-1.2); Eosinophils Percent Auto 0.3 % (0-4.4); Hematocrit 43.2 % (37.0-47.0); Hemoglobin 14.9 g/dL (12.0-15.0); Immature Granulocyte Percent A 1.7 % (0-0.5); Lymphocytes Percent Auto 14.2 % (18.3-44.2); Mean Corpuscular HGB Conc 34.5 g/dl (32-36); Mean Corpuscular Hemoglobin 29.3 pg (26-34); Mean Platelet Volume 10.5 fl (7.4-10.4); Monocytes Absolute Auto 0.7 K/mm3 (0.1-0.6); Monocytes Percent Auto 6.2 % (2.6-8.5); Neutrophils Absolute Auto 9.2 K/mm3 (1.3-6.7); Neutrophils Percent Auto 77.2 % (45.5-73.1); Platelet Count Result 367 k/mm3 (150-375); Red Blood Count 5.08 M/mm3 (4.2-5.4); Red Cell Distribution Width 12.4 % (11.5-14.5)
[2023-10-05 11:32] LABS: Alanine Aminotransferase 20 U/L (6-35); Albumin Level 4.7 g/dL (3.5-5.1); Alkaline Phosphatase 72 U/L (38-126); Anion Gap 12 mmol/L (4-12); Aspartate Amino Transferase 24 U/L (14-36); Bilirubin,Total 0.4 mg/dL (0.2-1.3); Blood Urea Nitrogen 11 mg/dL (7-17); Calcium 9.8 mg/dL (8.4-10.2); Carbon Dioxide 21 mmol/L (22-30); Chloride 104 mmol/L (98-107); Estimated CRCL calculation 66 ml/min; Estimated Glomerular Filt Rate > 60; Glucose 135 mg/dL (65-110); Potassium 3.4 mmol/L (3.4-5.0); Sodium 137 mmol/L (137-145)
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
[2023-10-05] MEDS: methylPREDNISolone SOD SUCC 125 MG VIAL IV PUSH (12:18)
[2023-10-05] MEDS: IPRATROPIUM BR 0.02% INH SOLN 0.5 MG/2.5 ML VIAL 1 MG INHALATION (12:19)
[2023-10-05] MEDS: ALBUTEROL SULFATE NEB 2.5 MG/3 ML INH 10 MG INHALATION (12:19)
[2023-10-05] MEDS: SODIUM CHLORIDE 0.9% IV 1,000 ML 999 ML IV CONT (12:23)
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
--- NOTE | 2023-10-05 15:50 | PM.CNPUL ---
History of Present Illness History of Present Illness Consult date: 10/05/23 Requesting physician: Bryon Walsh MD Chief complaint: Emphysema/Dyspnea Narrative: NEW: Yari Aparicio is a 33 year old female with alpha-1 antitrypsin deficiency [facility] Past Medical History Medical History Dgsif-4-zlxftuxlavi deficiency Asthma Surgical History Surgical History H/O dilation and curettage H/O hand surgery H/O nasal polypectomy Family History Family History Father Diabetes mellitus Social History Social History Social History: Patient is single and has 2 children. 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 Smoking status: Never smoker Alcohol intake: unknown Drinks per week: 1 Substance use: unknown Substance use type: does not use Lack of Transportation: No Lack of Food: Never True Current Housing: I Have Housing Concerned About Future Housing: No Difficulty Paying Gas/Electric Bills: No Difficulty Paying for Meds: No Currently Unemployed: No Education: Associate Degree Difficulty w/ Childcare or Family Care: No Spiritual care concerns: No Meds Home Medications and Allergies Home Medications Medication Instructions Recorded Confirmed Type albuterol sulfate 90 mcg/actuation 2 puff inhalation Q6H PRN 03/30/22 05/27/22 History aerosol inhaler Shortness Of Breath Or Wheezing guaifenesin 1,200 mg tablet, 1,200 mg PO BID 03/30/22 05/27/22 History extended release 12 hr (Mucinex) ipratropium 0.5 mg-albuterol 3 mg 3 ml inhalation Q4H PRN Shortness 03/30/22 05/27/22 History (2.5 mg base)/3 mL nebulization Of Breath Or Wheezing soln budesonide 0.5 mg/2 mL suspension 0.5 mg inhalation BID 05/28/22 05/28/22 History for nebulization (Pulmicort) montelukast 10 mg tablet 10 mg PO HS 05/28/22 05/28/22 History (Singulair) albuterol sulfate 90 mcg/actuation 1 inh inhalation QID PRN shortness 05/30/22 Rx aerosol inhaler of breath or wheezing #6.7 grams cefdinir 300 mg capsule 300 mg PO Q12H #14 caps 05/30/22 Rx doxycycline hyclate 100 mg tablet 100 mg PO DAILY #14 tabs 05/30/22 Rx montelukast 10 mg tablet 10 mg PO HS #30 tabs 05/30/22 Rx (Singulair) prednisone 10 mg tablet 10 mg PO DAILY #30 tabs 05/30/22 Rx prednisone 50 mg tablet 50 mg PO DAILY 5 days #5 tabs 10/07/22 Rx Allergies Allergy/AdvReac Type Severity Reaction Status Date / Time NSAIDS (Non-Steroidal Allergy Anaphylaxis Verified 10/05/23 10:38 Anti-Inflamma acetaminophen [From Tylenol] AdvReac Sneezing Verified 10/05/23 10:38 Vital Signs Vital Signs - 24 hr 10/05/23 10:35 10/05/23 10:35 10/05/23 10:35 Temperature 36.8 C Pulse Rate 141 H 140 H Respiratory Rate 26 H Blood Pressure 117/71 Pulse Oximetry 92 92 Oxygen Delivery Room Air 10/05/23 12:19 10/05/23 13:24 10/05/23 10:45 Temperature Pulse Rate 100 113 H 141 H Respiratory Rate 21 H 18 23 H Blood Pressure 120/84 Pulse Oximetry 94 Oxygen Delivery 10/05/23 12:25 10/05/23 12:45 10/05/23 13:15 Temperature Pulse Rate 104 H 108 H 110 H Respiratory Rate 20 18 22 H Blood Pressure 108/78 115/73 104/62 Pulse Oximetry 100 100 100 Oxygen Delivery 10/05/23 13:31 Temperature Pulse Rate Respiratory Rate Blood Pressure Pulse Oximetry 100 Oxygen Delivery Room Air Results Laboratory Findings 10/05/23 11:07 10/05/23 11:07 Abnormal lab findings: Abnormal Labs 10/05/23 11:07 WBC 12.0 H MPV 10.5 H Immature Gran % (Auto) 1.7 H Neut % (Auto) 77.2 H Lymph % (Auto) 14.2 L Starke # (Auto) 0.7 H Abs Immat Gran (auto) 0.20 H Absolute Neuts (auto) 9.2 H Carbon Dioxide 21 L Glucose 135 H
[2023-10-05] MEDS: methylPREDNISolone SOD SUCC 40 MG VIAL IV PUSH ×2 (18:13→23:47)
--- NOTE | 2023-10-05 18:49 | ADMGEN ---
This patient, Yari Aparicio, was admitted to IMU Room 212-01. Patient/family oriented to hospital policies and general routines including ID bracelet, bed and alarms, visiting hours, pain management, procedures, bathroom and other care routines, personal items, smoking policy, room service/diet, and visiting hours. Information on how to activate the Rapid Response Team has been discussed. Patient/Family are encouraged to report perceived risks to care and to ask questions if they do not understand what they are told or what they should do.
[2023-10-05] MEDS: BUDESONIDE RESPULE NEB 0.5 MG/2 ML AMP INHALATION (20:05)
[2023-10-05] MEDS: ALBUTEROL SULFATE NEB 2.5 MG/3 ML INH INHALATION (20:06)
[2023-10-05] MEDS: MONTELUKAST SODIUM 10 MG TABLET PO (20:17)
[2023-10-05] MEDS: guaiFENesin 12 HR 600 MG TABCR PO (20:17)
[2023-10-06] VITALS (10 sets, daily range): BP systolic 130–156; BP diastolic 79–92; PULSE 76–116; RESP 16–18; TEMP 36.4–36.7; O2SAT 94–98
[2023-10-06] MEDS: ALBUTEROL SULFATE NEB 2.5 MG/3 ML INH INHALATION ×2 (02:45→08:24)
[2023-10-06 05:09] LABS: Hematocrit 43.2 % (37.0-47.0); Hemoglobin 14.3 g/dL (12.0-15.0); Mean Corpuscular HGB Conc 33.1 g/dl (32-36); Mean Corpuscular Hemoglobin 29.1 pg (26-34); Mean Platelet Volume 10.9 fl (7.4-10.4); Platelet Count Result 355 k/mm3 (150-375); Red Blood Count 4.91 M/mm3 (4.2-5.4); Red Cell Distribution Width 12.3 % (11.5-14.5)
[2023-10-06 05:25] LABS: Anion Gap 9 mmol/L (4-12); Blood Urea Nitrogen 11 mg/dL (7-17); Calcium 9.5 mg/dL (8.4-10.2); Carbon Dioxide 20 mmol/L (22-30); Chloride 106 mmol/L (98-107); Estimated CRCL calculation 83 ml/min; Estimated Glomerular Filt Rate > 60; Glucose 141 mg/dL (65-110); Potassium 4.3 mmol/L (3.4-5.0); Sodium 135 mmol/L (137-145)
[2023-10-06] MEDS: methylPREDNISolone SOD SUCC 40 MG VIAL IV PUSH (05:54)
[2023-10-06] MEDS: BUDESONIDE RESPULE NEB 0.5 MG/2 ML AMP INHALATION (08:24)
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
== END 2023-10-06 10:50 | disposition home or self-care (01) ==
LOC: ANHED 12:58 → ANHIMU 14:04
PROVIDERS: Physician Assistant; Admitting Provider Internal Medicine; Emergency Provider Emergency Medicine; Visit Provider Nurse Practitioner Family
DX: J43.8 Other emphysema (principal); J44.1 Chronic obstructive pulmonary disease with (acute) exacerbation; E88.01 Alpha-1-antitrypsin deficiency; R06.02 Shortness of breath; Z79.51 Long term (current) use of inhaled steroids
CPT/HCPCS: 36415; 71046; 80048; 80053; 85025; 85027; 93005; 94640; 94667; 94668; 96361; 96374; 96375; 96376; 99285; A9270; G0378; J2919; J7030

== ENCOUNTER 2023-10-27 22:25 | Inpatient (IN) | payer OTHER, SELFPAY ==
--- NOTE | ~2023-10-27 | XR_ITS ---
EXAMINATION: XR chest 1V portable DATE: 10/29/2023 01:12 INDICATION: Shortness of breath. TECHNIQUE: A single frontal view of the chest was obtained. COMPARISON: Chest single view 10/27/2023, chest CT 05/27/2022 FINDINGS: There are airspace opacities in right upper and lower lung zones. No pleural effusion or pn eumothorax. Calcified right hilar and mediastinal lymph nodes are consistent with old granulomatous d isease. The heart size is normal. IMPRESSION: 1. Stable airspace opacities in right upper and lower lung zones, consistent with pneumonia. Reviewed, dictated and finalized at location A. IMPRESSION: 1. Stable airspace opacities in right upper and lower lung zones, consistent wi th pneumonia.
--- NOTE | ~2023-10-27 | XR_ITS ---
EXAMINATION: XR chest 1V portable DATE: 10/27/2023 23:21 INDICATION: Shortness of breath. TECHNIQUE: A single frontal view of the chest was obtained. COMPARISON: Chest 2 views 10/05/2023, chest CT 05/27/2022 FINDINGS: There are airspace opacities in right upper and lower lung zones. No pleural effusion or pn eumothorax. The heart size is normal. Calcified mediastinal lymph nodes are consistent with old granu lomatous disease. IMPRESSION: 1. Airspace opacities in right upper and lower lung zones, consistent with pneumonia. Reviewed, dictated and finalized at location A. IMPRESSION: 1. Airspace opacities in right upper and lower lung zones, consistent with pneu monia.
--- NOTE | 2023-10-27 22:30 | ECG_ITS ---
Test Date: 2023-10-27 22:45:27 Measurements Intervals [place] Rate: 128 P: 50 AR: 104 QRS: 52 QRSD: 74 T: 60 QT: 293 QTc: 428 Interpretive Statements BASELINE ARTIFACT RESULTS IN POOR QUALITY ECG SINUS TACHYCARDIA NONSPECIFIC ST AND T-WAVE ABNORMALITY ABNORMAL RHYTHM ECG COMPARED WITH 10/05/2023: NO OBVIOUS CHANGE ALTHOUGH THIS ECG IS OF POOR QUALITY Electronically Signed On 10-28-2023 12:27:11 CDT by Aric Grimes M.D.
--- NOTE | 2023-10-27 22:45 | ED.SOB ---
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 Patient states she has had a cough for the past couple days but began wheezing and having difficulty breathing 1 hour ago. She has been taking her Symbicort, Singulair and using inhalers as directed. She does have a history of multiple intubation secondary to respiratory distress. Her last admission was in 2019. She is reporting exhaustion from respiratory effort. states this is how her exacerbations present. <Shara Headley PA-C - Last Filed: 10/28/23 01:31> Related Data Home Medications: Home Medications Medication Instructions Recorded Confirmed guaifenesin 1,200 mg tablet, 1,200 mg PO BID PRN Congestion 03/30/22 10/05/23 extended release 12 hr (Mucinex) ipratropium 0.5 mg-albuterol 3 mg 3 ml inhalation Q4H PRN Shortness 03/30/22 10/05/23 (2.5 mg base)/3 mL nebulization Of Breath Or Wheezing soln budesonide-formoterol HFA 160 2 puff inhalation Q12H 10/05/23 10/05/23 mcg-4.5 mcg/actuation aerosol inhaler (Symbicort) ipratropium 20 mcg-albuterol 100 1 puff inhalation QID PRN 10/05/23 10/05/23 mcg/actuation mist for inhalation Shortness Of Breath Or Wheezing (Combivent Respimat) omeprazole 20 mg capsule,delayed 20 mg PO DAILY 10/05/23 10/05/23 release <NORMA Fry Last Filed: 10/28/23 01:31> Allergies/Adverse Reactions: Allergies Allergy/AdvReac Type Severity Reaction Status Date / Time NSAIDS (Non-Steroidal Allergy Anaphylaxis Verified 10/05/23 10:38 Anti-Inflamma acetaminophen [From Tylenol] AdvReac Sneezing Verified 10/05/23 10:38 <Shara Headley PA-C - Last Filed: 10/28/23 01:31> Review of Systems Review of Systems: All systems reviewed & are unremarkable except as noted in HPI and below <Shara Headley PA-C - Last Filed: 10/28/23 01:31> [facility] Past Medical History Medical History: Medical History Qldyy-8-ontxvecxxfa deficiency Asthma <Shara Headley PA-C - Last Filed: 10/28/23 01:31> Surgical History Surgical History: Surgical History H/O dilation and curettage H/O hand surgery H/O nasal polypectomy <Shara Headley PA-C - Last Filed: 10/28/23 01:31> Family History Family History: Family History Father Diabetes mellitus <Shara Headley PA-C - Last Filed: 10/28/23 01:31> Social History Social History: Social History Social History: Patient is single and has 2 children. 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 Code status full code Smoking status: Never smoker Alcohol intake: current Drinks per week: 1 Substance use: never Substance use type: does not use Do You Feel Safe in your Home?: Yes Lack of Transportation: No Lack of Food: Never True Current Housing: I Have Housing Concerned About Future Housing: No Difficulty Paying Gas/Electric Bills: No Difficulty Paying for Meds: No Currently Unemployed: No Education: Associate Degree Difficulty w/ Childcare or Family Care: No Spiritual care concerns: No <Shara Headley PA-C - Last Filed: 10/28/23 01:31> Exam Narrative: GENERAL: Ill-appearing, tripoding HEAD: Normocephalic, atraumatic. EYES: PERRLA and EOMI. ENT: Nares clear, no rhinorrhea
[2023-10-27 22:46] VITALS: BP 138/84; BP 139/84; PULSE 126; PULSE 128; PULSE 133; RESP 21; RESP 26; TEMP 36.8; O2SAT 95; O2SAT 97
[2023-10-27 22:50] VITALS: PULSE 116; RESP 25; O2SAT 100
[2023-10-27] MEDS: IPRATROPIUM 0.5 MG/ALBUTEROL SULFATE 2.5 MG AMPUL.NEB 3 ML INHALATION ×3 (22:50→23:35)
[2023-10-27] MEDS: methylPREDNISolone SOD SUCC 125 MG VIAL IV PUSH (22:52)
[2023-10-27] MEDS: MAGNESIUM SULF 2 GM/WATER 50ML 2 GM/50 ML BAG IVPB (22:52)
[2023-10-27 22:53] LABS: Basophils Absolute Auto 0.1 K/mm3 (0.0-0.1); Basophils Percent Auto 0.5 % (0.2-1.2); Eosinophils Absolute Auto 0.9 K/mm3 (0-0.3); Eosinophils Percent Auto 9.1 % (0-4.4); Hematocrit 39.6 % (37.0-47.0); Hemoglobin 13.6 g/dL (12.0-15.0); Immature Granulocyte Absolute 0.08 K/mm3 (0.00-0.031); Immature Granulocyte Percent A 0.8 % (0-0.5); Lymphocytes Absolute Auto 2.04 K/mm3 (0.9-3.2); Lymphocytes Percent Auto 20.1 % (18.3-44.2); Mean Corpuscular HGB Conc 34.3 g/dl (32-36); Mean Corpuscular Hemoglobin 29.3 pg (26-34); Mean Corpuscular Volume 85.3 fl (80-100); Mean Platelet Volume 10.9 fl (7.4-10.4); Monocytes Absolute Auto 0.9 K/mm3 (0.1-0.6); Monocytes Percent Auto 8.5 % (2.6-8.5); Neutrophils Absolute Auto 6.2 K/mm3 (1.3-6.7); Platelet Count Result 262 k/mm3 (150-375); Red Blood Count 4.64 M/mm3 (4.2-5.4); Red Cell Distribution Width 12.3 % (11.5-14.5); White Blood Count 10.2 K/mm3 (4.5-10.0)
[2023-10-27 22:55] VITALS: PULSE 119; RESP 20; O2SAT 100
[2023-10-27 23:01] VITALS: PULSE 116; RESP 26
[2023-10-27 23:04] LABS: INR 1.1
[2023-10-27 23:05] LABS: Partial Thromboplastin Time 26.8 Seconds (22.3-36.8)
[2023-10-27 23:12] LABS: Alanine Aminotransferase 20 U/L (6-35); Albumin Level 4.2 g/dL (3.5-5.1); Alkaline Phosphatase 49 U/L (38-126); Anion Gap 12 mmol/L (4-12); Aspartate Amino Transferase 25 U/L (14-36); Bilirubin,Total 0.5 mg/dL (0.2-1.3); Blood Urea Nitrogen 6 mg/dL (7-17); Calcium 9.3 mg/dL (8.4-10.2); Carbon Dioxide 21 mmol/L (22-30); Chloride 104 mmol/L (98-107); Estimated CRCL calculation 74 ml/min; Estimated Glomerular Filt Rate > 60; Glucose 96 mg/dL (65-110); Magnesium 1.7 mg/dL (1.6-2.3); Potassium 3.8 mmol/L (3.4-5.0); Sodium 137 mmol/L (137-145)
[2023-10-27 23:25] VITALS: PULSE 110; RESP 16; O2SAT 100
[2023-10-27 23:30] LABS: Influenza A QL RT-PCR Negative (Negative); Influenza B QL RT-PCR Negative (Negative); RSV RNA, RT-PCR Negative (Negative); SARS-CoV-2 RNA PCR Negative (Negative)
[2023-10-28] VITALS (27 sets, daily range): BP systolic 122–144; BP diastolic 69–80; PULSE 98–140; RESP 14–21; TEMP 36.3–36.8; O2SAT 94–100; BMI 25.7
--- NOTE | 2023-10-28 00:32 | ECG_ITS ---
Test Date: 2023-10-28 00:41:58 Measurements Intervals [place] Rate: 105 P: 61 [place]: 127 QRS: 34 QRSD: 81 T: 62 QT: 327 QTc: 433 Interpretive Statements SINUS TACHYCARDIA ABNORMAL RHYTHM ECG Compared to ECG 10/27/2023 22:45:27 NO OBVIOUS CHANGE, THIS ECG IS OF BETTER QUALITY WITH LESS BASELINE ARTIFACT Electronically Signed On 10-28-2023 12:29:01 CDT by Aric Grimes M.D.
[2023-10-28] MEDS: SODIUM CHLORIDE 0.9% IV 1,000 ML 999 ML IV CONT ×2 (00:54→18:18)
[2023-10-28 01:03] LABS: Alveolar/Arterial O2 Gradient 35.1 mmHg; Base Excess ABG -3.9 mEq/l (+/-2.0); Fractional Inspired Oxygen 21 %; HCO3 ABG 19.6 mEq/l (22.0-26.0); Oxygen Content ABG 18.4 %vol (16.0-22.0); Oxygen Saturation ABG 95.6 % (95.0-100.0); Oxyhemoglobin 95.1 % THb (90.0-100.0); PCO2 ABG 31.7 mmHg (35.0-45.0); PO2 ABG 76.7 mmHg (80.0-100.0); PO2 FiO2 Ratio Arterial Blood 3.65 %; Total Hemoglobin 13.7 g/dL (12.0-18.0)
[2023-10-28 01:04] LABS: Device NON-INVASIVE VENT; Non-Invasive Expiratory Pressure 5 CMH2O; Non-Invasive Inspiratory Pressure 10 CMH2O; Non-Invasive Vent Rate 14 /MIN; Site Drawn RIGHT BRACHIAL
--- NOTE | 2023-10-28 01:42 | PM.IMHP ---
H&P: HPI History of Present Illness Date/Time: 10/28/23 01:42 Chief Complaint: wheezing Narrative: This is a 33-year-old female with past medical history significant for alpha-1 antitrypsin deficiency, COPD/emphysema, patient presents to the emergency room with 2 days of shortness of breath, cough production of rosales phlegm copious amount, denies any chills fevers or rigors, has had post cough spells emesis, has been taking oral prednisone has been using her inhaler frequently but has progressively gotten worse over the course of the last 2 days in emergency room patient was tripoding with severe respiratory distress placed on BiPAP. Review of Systems Review of Systems: sob, cough, sputum production, wheezing PMFSH Past Medical History Medical History Qkpjs-3-gsdggowuirc deficiency Asthma Surgical History Surgical History H/O dilation and curettage H/O hand surgery H/O nasal polypectomy Family History Family History Father Diabetes mellitus Social History Social History Social History: Patient is single and has 2 children. 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 Smoking status: Never smoker Alcohol intake: current Drinks per week: 1 Substance use: never Substance use type: does not use Do You Feel Safe in your Home?: Yes Lack of Transportation: No Lack of Food: Never True Current Housing: I Have Housing Concerned About Future Housing: No Difficulty Paying Gas/Electric Bills: No Difficulty Paying for Meds: No Currently Unemployed: No Education: Associate Degree Difficulty w/ Childcare or Family Care: No Spiritual care concerns: No Meds Home Medications and Allergies Home Medications Medication Instructions Recorded Confirmed Type guaifenesin 1,200 mg tablet, 1,200 mg PO BID PRN Congestion 03/30/22 10/28/23 History extended release 12 hr (Mucinex) ipratropium 0.5 mg-albuterol 3 mg 3 ml inhalation Q4H PRN Shortness 03/30/22 10/28/23 History (2.5 mg base)/3 mL nebulization Of Breath Or Wheezing soln albuterol sulfate 90 mcg/actuation 1 inh inhalation QID PRN shortness 05/30/22 10/28/23 Rx aerosol inhaler of breath or wheezing #6.7 grams montelukast 10 mg tablet 10 mg PO HS #30 tabs 05/30/22 10/28/23 Rx (Singulair) prednisone 10 mg tablet 10 mg PO DAILY #30 tabs 05/30/22 10/28/23 Rx budesonide-formoterol HFA 160 2 puff inhalation Q12H 10/05/23 10/28/23 History mcg-4.5 mcg/actuation aerosol inhaler (Symbicort) ipratropium 20 mcg-albuterol 100 1 puff inhalation QID PRN 10/05/23 10/28/23 History mcg/actuation mist for inhalation Shortness Of Breath Or Wheezing (Combivent Respimat) omeprazole 20 mg capsule,delayed 20 mg PO DAILY 10/05/23 10/28/23 History release Allergies Allergy/AdvReac Type Severity Reaction Status Date / Time NSAIDS (Non-Steroidal Allergy Anaphylaxis Verified 10/05/23 10:38 Anti-Inflamma acetaminophen [From Tylenol] AdvReac Sneezing Verified 10/05/23 10:38 Vital Signs Vital Signs - 24 hr 10/27/23 22:46 10/27/23 22:46 10/27/23 22:46 Temperature 98.3 F Pulse Rate 133 H 126 H Respiratory Rate 26 H Blood Pressure 138/84 Pulse Oximetry 97 97 Oxygen Delivery Room Air Room Air 10/27/23 22:46 10/27/23 22:50 10/27/23 23:01 Temperature Pulse Rate 128 H 116 H 116 H Respiratory Rate 21 H 25 H 26 H Blood Pressure 139/84 Pulse Oximetry 95 100 Oxygen Delivery BiPAP 10/27/23 22:55 10/27/23 23:25 10/28/23 00:37 Temperature Pulse Rate 119 H 110 H 104 H Respiratory Rate 20 16 19 Blood Pressure Pulse Oximetry 100 100 Oxygen Delivery 10/28/23 01:06 Temperature Pulse Rate 106 H Respiratory Rate 21 H Blood Press
--- NOTE | 2023-10-28 02:31 | ADMGEN ---
This patient, Yari Aparicio, was admitted to IMU Room 203-01. Patient/family oriented to hospital policies and general routines including ID bracelet, bed and alarms, visiting hours, pain management, procedures, bathroom and other care routines, personal items, smoking policy, room service/diet, and visiting hours. Information on how to activate the Rapid Response Team has been discussed. Patient/Family are encouraged to report perceived risks to care and to ask questions if they do not understand what they are told or what they should do.
[2023-10-28] MEDS: AZITHROMYCIN 500 MG/NS 250 ML 500 MG/250 ML BAG 250 MG IVPB (03:11)
[2023-10-28] MEDS: methylPREDNISolone SOD SUCC 125 MG VIAL 60 MG IV PUSH ×4 (05:38→23:57)
[2023-10-28] MEDS: IPRATROPIUM 0.5 MG/ALBUTEROL SULFATE 2.5 MG AMPUL.NEB 3 ML INHALATION ×5 (07:45→23:00)
--- NOTE | 2023-10-28 09:25 | ECG_ITS ---
Test Date: 2023-10-28 10:15:53 Measurements Intervals [place] Rate: 108 P: 55 [place]: 140 QRS: 7 QRSD: 73 T: 31 QT: 335 QTc: 450 Interpretive Statements SINUS TACHYCARDIA OTHERWISE NORMAL ECG Compared to ECG 10/28/2023 00:41:58 NO SIGNIFICANT CHANGE Electronically Signed On 10-28-2023 12:36:11 CDT by Aric Grimes M.D.
[2023-10-28] MEDS: SODIUM CHLORIDE 0.9% IV 500 ML 1000 ML IV CONT (09:38)
[2023-10-28 10:15] LABS: MRSA (PCR) NOT DETECTED (NOT DETECTE)
--- NOTE | 2023-10-28 11:55 | PM.IMPN ---
Progress Note: A&P Assessment and Plan (1) Acute exacerbation of emphysema: Code(s): J43.9 - Emphysema, unspecified Status: Acute Assessment and Plan: Currently on room air Off BiPAP Contienu bronchodilators and steroids patient started on Rocephin and Zithromax (2) Emphysema due to vrlfe-9-nknrjcvltly deficiency: Code(s): J43.8 - Other emphysema; E88.01 - Ftcgn-6-eeupgcwcais deficiency Status: Acute Assessment and Plan: continue above care (3) Acute hypoxic respiratory failure: Code(s): J96.01 - Acute respiratory failure with hypoxia Status: Acute Assessment and Plan: resolved on room air now (4) Pneumonia: Qualifiers: Pneumonia type: due to unspecified organism Code(s): J18.9 - Pneumonia, unspecified organism Status: Acute Assessment and Plan: CXR showed RU and L opacities consistent with Pnuemonia Monitor blood culture Patient tachycardic today, started on Normal saline Lactic acid pending Continue Rocpehin and Azithromycin Subjective Date/time seen: 10/28/23 11:55 Interval history: Patient comfortable at bedside and off BiPAP However due to tachycardia will be monitored one more day Review of Systems Review of Systems: sob, cough, sputum production, wheezing Exam Narrative: patient is sitting in a stretcher on BiPAP Const: General: comfortable, no acute distress, well developed, alert, awake and average body habitus Nutritional Appearance: average body habitus Orientation/consciousness: patient oriented x3 Other: well-appearing HENMT: Head: normal to inspection, normocephalic and atraumatic Ears: hearing grossly normal bilaterally Face/Nose/Sinus: normal facial exam Face and sinus: normal facial exam Eyes: General: appearance normal, both eyes and all related structures Pupils: Equal, round and reactive pupils present EOM: EOMs intact bilaterally Neck: Neck: full ROM, no lymphadenopathy and no JVD Thyroid: thyroid normal Lymphatic: no lymphadenopathy noted Resp: Effort & Inspection: normal respiratory effort, able to speak in complete sentences, Actively coughing and other ( patient is on BiPAP) Auscultation: wheezes Cardio: Jugular venous distension: no JVD Rate: regular rate Rhythm: regular rhythm Heart sounds: S1 normal heart sound present and S2 normal heart sound present : General: Yes deferred Skin: Rashes: no rashes Wounds: no wounds Neuro: General: patient oriented x3 and CN's II-XI intact bilaterally Cranial nerves: Yes CN's II-XII intact bilaterally and Yes Equal, round and reactive pupils present Cognition (Neuro): normal cognition Speech: normal speech Gait exam (Neuro): Normal gait present Motor exam (neuro): 5/5 motor strength present throughout Extrem: General: normal to inspection, full ROM, no joint enlargement and no pedal edema Objective Data Vital Signs Vital Signs: Vital Signs - 24 hr 10/27/23 22:46 10/27/23 22:46 10/27/23 22:46 Temperature 98.3 F Pulse Rate 133 H 126 H Respiratory Rate 26 H Blood Pressure 138/84 Pulse Oximetry 97 97 Oxygen Delivery Room Air Room Air Fraction of Inspired Oxygen 10/27/23 22:46 10/27/23 22:50 10/27/23 23:01 Temperature Pulse Rate 128 H 116 H 116 H Respiratory Rate 21 H 25 H 26 H Blood Pressure 139/84 Pulse Oximetry 95 100 Oxygen Delivery BiPAP Fraction of Inspired Oxygen 10/27/23 22:55 10/27/23 23:25 10/28/23 00:37 Temperature Pulse Rate 119 H 110 H 104 H Respiratory Rate 20 16 19 Blood Pressure Pulse Oximetry 100 100 Oxygen Delivery Fraction of Inspired Oxygen 10/28/23 01:06 10/28/23 02:40 10/28/23 02:29 Temperature 98.2 F Pulse Rate 106 H 98 113 H Respiratory Rate 21 H 20 Blood Pressure 122/80 Pulse Oximetry 100 94 Oxygen Delivery BiPAP Fraction of Inspired Oxygen 10/28/23 03:42 10/28/23 04:00 10/28/23 06:18 Temper
[2023-10-28] MEDS: SODIUM CHLORIDE 0.9% IV 1,000 ML 100 ML IV CONT (12:15)
[2023-10-28 13:13] LABS: Lactic Acid Reflex 2.1 mmol/L (0.7-2.0)
[2023-10-28 15:57] LABS: Reflex Lactic Acid Yes or No Add Lactic
[2023-10-28 16:30] LABS: Lactic Acid 4.8 mmol/L (0.7-2.0)
[2023-10-28 18:29] LABS: Add Urine Microscopic? NO; Appearance Urine Clear (Clear); Bilirubin Urine Negative (Negative); Blood Urine Negative (Negative); Color Urine Yellow (Yellow); Glucose Urine UA 3+ mg/dL (Negative); Ketones Urine Trace mg/dL (Negative); Leukocyte Esterase Ur Negative LEU/UL (Negative); Nitrate Urine Negative (Negative); Protein Urine Negative (Negative); Specific Grav Ur 1.015 (1.001-1.035); Urobilinogen Urine 0.2 mg/dL (<2.0); pH Urine 6.5 (5.0-9.0)
[2023-10-28 20:43] LABS: Lactic Acid Reflex 3.9 mmol/L (0.7-2.0)
[2023-10-28] MEDS: levoFLOXacin 750 MG/D5W 150 ML 750 MG/150 ML BAG 100 MG IVPB (20:56)
[2023-10-28] MEDS: SODIUM CHLORIDE 0.9% IV 1,000 ML 125 ML IV CONT (20:56)
[2023-10-29] VITALS (30 sets, daily range): BP systolic 106–144; BP diastolic 58–78; PULSE 91–153; RESP 16–24; TEMP 36.3–37.1; O2SAT 92–99
[2023-10-29] MEDS: MORPHINE SULFATE (*CRX) 4 MG/ML INJ IV PUSH (00:35)
[2023-10-29] MEDS: FUROSEMIDE INJ 40 MG/4 ML VIAL IV PUSH (01:04)
[2023-10-29] MEDS: AZITHROMYCIN 500 MG/NS 250 ML 500 MG/250 ML BAG 250 MG IVPB (01:17)
[2023-10-29] MEDS: IPRATROPIUM 0.5 MG/ALBUTEROL SULFATE 2.5 MG AMPUL.NEB 3 ML INHALATION ×6 (04:10→23:56)
[2023-10-29] MEDS: methylPREDNISolone SOD SUCC 125 MG VIAL 60 MG IV PUSH ×3 (06:12→20:40)
--- NOTE | 2023-10-29 07:16 | PM.IMPN ---
Progress Note: A&P Assessment and Plan (1) Acute exacerbation of emphysema: Code(s): J43.9 - Emphysema, unspecified Status: Acute Assessment and Plan: Currently on room air Off BiPAP Contienu bronchodilators and steroids Started Levofloxacin (2) Emphysema due to oajwf-6-pbghtbyfhio deficiency: Code(s): J43.8 - Other emphysema; E88.01 - Nckxl-1-oaxsxtcfgri deficiency Status: Acute Assessment and Plan: continue above care (3) Acute hypoxic respiratory failure: Code(s): J96.01 - Acute respiratory failure with hypoxia Status: Acute Assessment and Plan: resolved on room air now (4) Pneumonia: Qualifiers: Pneumonia type: due to unspecified organism Code(s): J18.9 - Pneumonia, unspecified organism Status: Acute Assessment and Plan: CXR showed RU and L opacities consistent with Pnuemonia Monitor blood culture Patient tachycardic today possibly due to the respiratory treatment. Continue monitoring the pulse. Lactic acid 4< 3.2 D/C Rocpehin and Azithromycin Started Levofloxacin 750 mg PO QD Decrease the methylprednisone 60 mg from every q.6 hours to q.12 hours Continue monitoring the WBC and patient's symptom Possible discharge tomorrow Subjective Date/time seen: 10/29/23 07:16 Interval history: Patient was examined by bedside. Patient reports during child she was diagnosed as cystic fibrosis but lately in 2009 she was diagnosed with emphysema with the alpha-1 antitrypsin deficiency. During the beginning of a cough the course of the patient was treated with the weekly infusion prolastin but lately she is treated as a chronic COPD patient. Patient reports she was a multiple times intubated. Patient works at [employer] as a nurse. Patient developed a cough last and respiratory symptom exacerbated. Was initially treated with BiPAP the ED now she is on the room air. History denied patient heart rate 180. Patient was given Lasix and morphine. Patient believes because her lung was congested due to the fluids given before due to her lactic acid. Currently she denies any shortness of breath or any respiratory distress. Review of Systems Review of Systems: sob, cough, sputum production, wheezing Exam Narrative: patient is sitting in a stretcher on BiPAP Const: General: comfortable, no acute distress, well developed, alert, awake and average body habitus Nutritional Appearance: average body habitus Orientation/consciousness: patient oriented x3 Other: well-appearing HENMT: Head: normal to inspection, normocephalic and atraumatic Ears: hearing grossly normal bilaterally Face/Nose/Sinus: normal facial exam Face and sinus: normal facial exam Eyes: General: appearance normal, both eyes and all related structures Pupils: Equal, round and reactive pupils present EOM: EOMs intact bilaterally Neck: Neck: full ROM, no lymphadenopathy and no JVD Thyroid: thyroid normal Lymphatic: no lymphadenopathy noted Resp: Effort & Inspection: normal respiratory effort, able to speak in complete sentences, Actively coughing and other ( patient is on BiPAP) Auscultation: wheezes Cardio: Jugular venous distension: no JVD Rate: regular rate Rhythm: regular rhythm Heart sounds: S1 normal heart sound present and S2 normal heart sound present : General: Yes deferred Skin: Rashes: no rashes Wounds: no wounds Neuro: General: patient oriented x3 and CN's II-XI intact bilaterally Cranial nerves: Yes CN's II-XII intact bilaterally and Yes Equal, round and reactive pupils present Cognition (Neuro): normal cognition Speech: normal speech Gait exam (Neuro): Normal gait present Motor exam (neuro): 5/5 motor strength present throughout Extrem: General: normal to inspection, full ROM, no joint enlargement and no pedal edema Objective Data Vital Signs Vital Signs: Vital Signs - 24 hr 10/28/23 07:50
[2023-10-29 13:28] LABS: Basophils Percent Auto 0.1 % (0.2-1.2); Hematocrit 41.6 % (37.0-47.0); Hemoglobin 13.8 g/dL (12.0-15.0); Immature Granulocyte Absolute 0.11 K/mm3 (0.00-0.031); Immature Granulocyte Percent A 0.6 % (0-0.5); Lymphocytes Absolute Auto 0.51 K/mm3 (0.9-3.2); Lymphocytes Percent Auto 2.9 % (18.3-44.2); Mean Corpuscular HGB Conc 33.2 g/dl (32-36); Mean Corpuscular Hemoglobin 29.2 pg (26-34); Mean Corpuscular Volume 87.9 fl (80-100); Mean Platelet Volume 10.9 fl (7.4-10.4); Monocytes Absolute Auto 0.5 K/mm3 (0.1-0.6); Monocytes Percent Auto 2.7 % (2.6-8.5); Neutrophils Absolute Auto 16.6 K/mm3 (1.3-6.7); Neutrophils Percent Auto 93.7 % (45.5-73.1); Platelet Count Result 308 k/mm3 (150-375); Red Blood Count 4.73 M/mm3 (4.2-5.4); Red Cell Distribution Width 12.6 % (11.5-14.5); White Blood Count 17.7 K/mm3 (4.5-10.0)
[2023-10-29 13:45] LABS: Alanine Aminotransferase 30 U/L (6-35); Albumin Level 4.4 g/dL (3.5-5.1); Alkaline Phosphatase 47 U/L (38-126); Anion Gap 12 mmol/L (4-12); Aspartate Amino Transferase 30 U/L (14-36); Bilirubin,Total 0.4 mg/dL (0.2-1.3); Blood Urea Nitrogen 8 mg/dL (7-17); Calcium 9.8 mg/dL (8.4-10.2); Carbon Dioxide 21 mmol/L (22-30); Chloride 105 mmol/L (98-107); Estimated CRCL calculation 96 ml/min; Estimated Glomerular Filt Rate > 60; Glucose 164 mg/dL (65-110); Potassium 3.8 mmol/L (3.4-5.0); Sodium 138 mmol/L (137-145)
[2023-10-29 16:26] LABS: Reflex Lactic Acid Yes or No Add Lactic
[2023-10-29 17:03] LABS: Lactic Acid 3.2 mmol/L (0.7-2.0)
[2023-10-29] MEDS: levoFLOXacin 750 MG TABLET PO (20:40)
[2023-10-30] VITALS (20 sets, daily range): BP systolic 122–135; BP diastolic 68–91; PULSE 74–122; RESP 16–20; TEMP 36.2–36.8; O2SAT 16–98
[2023-10-30 04:18] LABS: Basophils Absolute Auto 0.1 K/mm3 (0.0-0.1); Basophils Percent Auto 0.3 % (0.2-1.2); Hematocrit 41.9 % (37.0-47.0); Hemoglobin 13.5 g/dL (12.0-15.0); Immature Granulocyte Absolute 0.24 K/mm3 (0.00-0.031); Immature Granulocyte Percent A 1.3 % (0-0.5); Lymphocytes Percent Auto 3.7 % (18.3-44.2); Mean Corpuscular HGB Conc 32.2 g/dl (32-36); Mean Corpuscular Hemoglobin 28.7 pg (26-34); Mean Corpuscular Volume 89.1 fl (80-100); Mean Platelet Volume 11.2 fl (7.4-10.4); Monocytes Absolute Auto 0.9 K/mm3 (0.1-0.6); Monocytes Percent Auto 4.6 % (2.6-8.5); Neutrophils Absolute Auto 17.1 K/mm3 (1.3-6.7); Neutrophils Percent Auto 90.1 % (45.5-73.1); Platelet Count Result 336 k/mm3 (150-375); Red Cell Distribution Width 12.4 % (11.5-14.5)
[2023-10-30] MEDS: IPRATROPIUM 0.5 MG/ALBUTEROL SULFATE 2.5 MG AMPUL.NEB 3 ML INHALATION ×4 (04:26→14:59)
[2023-10-30 04:27] LABS: Alanine Aminotransferase 22 U/L (6-35); Albumin Level 4.1 g/dL (3.5-5.1); Alkaline Phosphatase 52 U/L (38-126); Anion Gap 10 mmol/L (4-12); Aspartate Amino Transferase 27 U/L (14-36); Bilirubin,Total 0.3 mg/dL (0.2-1.3); Blood Urea Nitrogen 11 mg/dL (7-17); Calcium 9.6 mg/dL (8.4-10.2); Carbon Dioxide 23 mmol/L (22-30); Chloride 103 mmol/L (98-107); Estimated CRCL calculation 85 ml/min; Estimated Glomerular Filt Rate > 60; Glucose 124 mg/dL (65-110); Sodium 136 mmol/L (137-145)
[2023-10-30] MEDS: methylPREDNISolone SOD SUCC 125 MG VIAL 60 MG IV PUSH (08:51)
[2023-10-30 10:23] LABS: Lactic Acid Reflex 2.6 mmol/L (0.7-2.0)
[2023-10-30 13:03] LABS: Reflex Lactic Acid Yes or No Add Lactic
[2023-10-30 13:32] LABS: Lactic Acid 2.8 mmol/L (0.7-2.0)
--- NOTE | 2023-10-30 15:01 | PM.DS ---
DS: Admitting Diagnosis Discharge Date 10/30/23 Admitting Diagnosis Wheezing DS: Discharge Diagnosis Discharge Diagnosis (1) Acute exacerbation of emphysema: Code(s): J43.9 - Emphysema, unspecified Status: Acute (2) Emphysema due to atlyq-9-ygjbpwbjvzg deficiency: Code(s): J43.8 - Other emphysema; E88.01 - Lemyp-6-trtglsiwfbf deficiency Status: Acute (3) Acute hypoxic respiratory failure: Code(s): J96.01 - Acute respiratory failure with hypoxia Status: Acute (4) Pneumonia: Qualifiers: Pneumonia type: due to unspecified organism Code(s): J18.9 - Pneumonia, unspecified organism Status: Acute DS: Summary Hospital Course Reason for hospitalization: 33yo female with alpha-1 antitrypsin deficiency, COPD/emphysema and chronic respiratory failure here for wheezing, SOB and productive cough. Hospital Course: On admission, patient was tachycardic and tachypneic. EKG showing sinus tachycardia. CXR showing airspace disease in right upper lobe and lower lobes. Influenza, RSV and COVID PCR were negative. MRSA nasal swab was negative. Blood cultures collected and she was started on abx. She was started on Solu-Medrol. She required BiPAP in the ED. ABG on bipap was 7.41/32/77. She was on Rocephin and Azithromycin but changed to Levaquin. She also received Lasix IV once. She had clinical improvement. Able to wean off the bipap. She had lactic acidosis which could be related to PNA and/or from her albuterol use. Lactic acid level trended down overall. WBC was 10K but climbed to 19K felt related to steroids. She feels much better. She feels ready for discharge. She overall did well and was able to be discharged home on 10/30/23. Status at Discharge Cognitive/behavioral status at discharge: stable Time Spent with Patient Time attestation: Total time spent providing and/or coordinating discharge services: 36 minutes Time spent: Greater than 30 minutes Exam Narrative: AF 97.4 130/76 96 16 95% ra Gen - NARD Chest - a few scattered wheezes posteriorly, nml RR, no conversational dyspnea CV - RRR S1/S2. Tele showing no significant dysrhythmias Abd - Soft, NT/ND, Positive BS Ext - No pedal edema Psych - Nml mood and affect Skin - Warm and dry DS: Data Data Completed and Pending Labs on day of discharge: Labs from last 24 hours 10/30/23 10/30/23 10/30/23 13:10 09:59 03:42 WBC 19.0 H RBC 4.70 Hgb 13.5 Hct 41.9 MCV 89.1 MCH 28.7 MCHC 32.2 RDW 12.4 Plt Count 336 MPV 11.2 H Immature Gran % (Auto) 1.3 H Neut % (Auto) 90.1 H Lymph % (Auto) 3.7 L [place] % (Auto) 4.6 Eos % (Auto) 0.0 Baso % (Auto) 0.3 Lymph # (Auto) 0.70 L [place] # (Auto) 0.9 H Eos # (Auto) 0.0 Baso # (Auto) 0.1 Abs Immat Gran (auto) 0.24 H Absolute Neuts (auto) 17.1 H Absolute Nucleated RBC 0.000 Nucleated RBC % 0.0 Sodium 136 L Potassium 4.0 Chloride 103 Carbon Dioxide 23 Anion Gap 10 BUN 11 Creatinine 0.80 Estim Creat Clear Calc 85 Estimated GFR > 60 Glucose 124 H Lactic Acid 2.8 H 2.6 H Calcium 9.6 Total Bilirubin 0.3 AST 27 ALT 22 Alkaline Phosphatase 52 Total Protein 7.0 Albumin 4.1 10/29/23 16:45 WBC RBC Hgb Hct MCV MCH MCHC RDW Plt Count MPV Immature Gran % (Auto) Neut % (Auto) Lymph % (Auto) [place] % (Auto) Eos % (Auto) Baso % (Auto) Lymph # (Auto) [place] # (Auto) Eos # (Auto) Baso # (Auto) Abs Immat Gran (auto) Absolute Neuts (auto) Absolute Nucleated RBC Nucleated RBC % Sodium Potassium Chloride Carbon Dioxide Anion Gap BUN Creatinine Estim Creat Clear Calc Estimated GFR Glucose Lactic Acid 3.2 H Calcium Total Bilirubin AST ALT Alkaline Phosphatase Total Protein Albumin Preliminary micro results at discharge 10/28/23 01:49 Blood Culture - Preliminary Bl
[2023-10-30 17:36] LABS: Pregnancy On Board Control Positive; Urine Pregnancy Test Negative
== END 2023-10-30 18:22 | disposition home or self-care (01) | DRG 190 ==
LOC: ANHED 10-28 01:37 → ANHIMU 10-28 01:59
PROVIDERS: Emergency Medicine; General Practice; Internal Medicine; Admitting Provider Internal Medicine; Emergency Provider Physician Assistant; Visit Provider Internal Medicine
DX: J43.8 Other emphysema (principal); J18.9 Pneumonia, unspecified organism; J96.01 Acute respiratory failure with hypoxia; E87.21 Acute metabolic acidosis; E88.01 Alpha-1-antitrypsin deficiency; Z20.822 Contact with and (suspected) exposure to COVID-19
CPT/HCPCS: 36415; 36600; 71045; 80053; 81003; 81025; 82805; 83605; 83735; 85025; 85610; 85730; 87040; 87637; 87641; 93005; 94002; 94003; 94640; 94667; 96365; 96366; 96375; 99285; A9270; J0456; J0696; J1940; J1956; J2270; J2919; J3475; J7030; J7040

== ENCOUNTER 2023-11-30 19:44 | Emergency (ER) | payer OTHER, SELFPAY ==
--- NOTE | ~2023-11-30 | XR_ITS ---
XR chest 1V portable Ordering provider: Sam Casas MD History: 33 years Female with . sob . Comparison: October 29, 2023. FINDINGS: MEDIASTINUM: The cardiac silhouette is not enlarged. Right hilar and azygos lymph node calcifications . LUNGS: No infiltrates, effusions or pneumothorax. OTHER: No free air under the diaphragm. IMPRESSION: No acute cardiopulmonary pathology. Reviewed, dictated and finalized at location A.
[2023-11-30 19:46] VITALS: BP 132/87; PULSE 155; RESP 28; TEMP 36.3; O2SAT 95
--- NOTE | 2023-11-30 19:50 | ECG_ITS ---
Test Date: 2023-11-30 19:54:11 Measurements Intervals [place] Rate: 138 P: 72 ID: 127 QRS: 51 QRSD: 78 T: 81 QT: 330 QTc: 500 Interpretive Statements SINUS TACHYCARDIA NONSPECIFIC ST & T-WAVE ABNORMALITY- DIFFUSE LEADS BASELINE ARTIFACT- I, II, III, AVR, AVL, AVF, V1-V2 ABNORMAL ECG Compared to ECG 10/28/2023 10:15:53 HEART RATE HAS INCREASED ST-T wave abnormality now present Electronically Signed On 12-01-2023 06:34:18 CDT by Karsten Drew D.O.
[2023-11-30 20:08] VITALS: O2SAT 95
[2023-11-30 20:11] VITALS: O2SAT 95
[2023-11-30 20:16] LABS: Basophils Absolute Auto 0.1 K/mm3 (0.0-0.1); Basophils Percent Auto 0.4 % (0.2-1.2); Eosinophils Absolute Auto 0.1 K/mm3 (0-0.3); Eosinophils Percent Auto 0.5 % (0-4.4); Hematocrit 45.1 % (37.0-47.0); Hemoglobin 15.6 g/dL (12.0-15.0); Immature Granulocyte Absolute 0.24 K/mm3 (0.00-0.031); Immature Granulocyte Percent A 1.2 % (0-0.5); Lymphocytes Absolute Auto 1.69 K/mm3 (0.9-3.2); Lymphocytes Percent Auto 8.7 % (18.3-44.2); Mean Corpuscular HGB Conc 34.6 g/dl (32-36); Mean Corpuscular Hemoglobin 29.3 pg (26-34); Mean Corpuscular Volume 84.6 fl (80-100); Mean Platelet Volume 10.3 fl (7.4-10.4); Monocytes Absolute Auto 0.8 K/mm3 (0.1-0.6); Monocytes Percent Auto 4.2 % (2.6-8.5); Neutrophils Absolute Auto 16.5 K/mm3 (1.3-6.7); Platelet Count Result 386 k/mm3 (150-375); Red Blood Count 5.33 M/mm3 (4.2-5.4); Red Cell Distribution Width 12.4 % (11.5-14.5); White Blood Count 19.4 K/mm3 (4.5-10.0)
[2023-11-30] MEDS: MAGNESIUM SULF 2 GM/WATER 50ML 2 GM/50 ML BAG IVPB (20:20)
[2023-11-30] MEDS: methylPREDNISolone SOD SUCC 125 MG VIAL IV PUSH (20:20)
[2023-11-30 20:37] VITALS: BP 135/83; PULSE 123; RESP 19; O2SAT 99
[2023-11-30 20:42] LABS: Magnesium 1.7 mg/dL (1.6-2.3)
[2023-11-30 20:45] LABS: Alanine Aminotransferase 17 U/L (6-35); Albumin Level 4.6 g/dL (3.5-5.1); Alkaline Phosphatase 58 U/L (38-126); Anion Gap 20 mmol/L (4-12); Aspartate Amino Transferase 31 U/L (14-36); Bilirubin,Total 0.7 mg/dL (0.2-1.3); Blood Urea Nitrogen 8 mg/dL (7-17); Calcium 9.4 mg/dL (8.4-10.2); Carbon Dioxide 18 mmol/L (22-30); Chloride 94 mmol/L (98-107); Estimated CRCL calculation 74 ml/min; Estimated Glomerular Filt Rate > 60; Glucose 155 mg/dL (65-110); Sodium 132 mmol/L (137-145)
[2023-11-30 20:52] LABS: Influenza A QL RT-PCR Negative (Negative); Influenza B QL RT-PCR Negative (Negative); NT Pro B Type Natriuretic Pept 30 pg/mL (19.9-100); RSV RNA, RT-PCR Negative (Negative); SARS-CoV-2 RNA PCR Negative (Negative); Troponin I < 0.012 ng/mL (0.000-0.034)
[2023-11-30 21:00] LABS: Potassium 3.6 mmol/L (3.4-5.0)
[2023-11-30 21:01] LABS: Procalcitonin < 0.0 ng/mL
[2023-11-30 21:21] VITALS: PULSE 113; RESP 18
[2023-11-30] MEDS: IPRATROPIUM 0.5 MG/ALBUTEROL SULFATE 2.5 MG AMPUL.NEB 3 ML INHALATION ×2 (21:21→22:20)
[2023-11-30 21:28] LABS: Alveolar/Arterial O2 Gradient 131.6 mmHg; Fractional Inspired Oxygen 32 %; HCO3 ABG 18.1 mEq/l (22.0-26.0); Oxygen Content ABG 20.5 %vol (16.0-22.0); Oxygen Saturation ABG 94.1 % (95.0-100.0); Oxyhemoglobin 92.6 % THb (90.0-100.0); PCO2 ABG 26.7 mmHg (35.0-45.0); PO2 ABG 65.3 mmHg (80.0-100.0); PO2 FiO2 Ratio Arterial Blood 2.04 %; Total Hemoglobin 15.8 g/dL (12.0-18.0)
[2023-11-30 21:29] LABS: Device NASAL CANNULA; Modified Allen's Test Pass; Site Drawn LEFT BRACHIAL
[2023-11-30 21:30] LABS: Lactic Acid Reflex 1.7 mmol/L (0.7-2.0)
--- NOTE | 2023-11-30 22:04 | ED.GENADULT ---
HPI - General Adult General Chief complaint: Shortness of Breath/Dyspnea Stated complaint: sob Time Seen by Provider: 11/30/23 19:59 History of Present Illness HPI narrative: patient 33-year-old female who presents emergency department with chief complaint of shortness of breath. Patient has prior history of alpha-1 antitrypsin disorder reports that she started having some shortness of breath today reports she is normally on 10 mg of prednisone daily but started getting more short of breath today. Patient reports no fever reports no productive cough. Related Data Home Medications Medication Instructions Recorded Confirmed guaifenesin 1,200 mg tablet, 1,200 mg PO BID PRN Congestion 03/30/22 10/28/23 extended release 12 hr (Mucinex) ipratropium 0.5 mg-albuterol 3 mg 3 ml inhalation Q4H PRN Shortness 03/30/22 10/28/23 (2.5 mg base)/3 mL nebulization Of Breath Or Wheezing soln budesonide-formoterol HFA 160 2 puff inhalation Q12H 10/05/23 10/28/23 mcg-4.5 mcg/actuation aerosol inhaler (Symbicort) ipratropium 20 mcg-albuterol 100 1 puff inhalation QID PRN 10/05/23 10/28/23 mcg/actuation mist for inhalation Shortness Of Breath Or Wheezing (Combivent Respimat) omeprazole 20 mg capsule,delayed 20 mg PO DAILY 10/05/23 10/28/23 release Allergies Allergy/AdvReac Type Severity Reaction Status Date / Time NSAIDS (Non-Steroidal Allergy Anaphylaxis Verified 10/05/23 10:38 Anti-Inflamma acetaminophen [From Tylenol] AdvReac Sneezing Verified 10/05/23 10:38 Review of Systems Review of Systems: A 10 system review of systems was completed on the patient and is negative except for what is stated in the HPI. Nursing and ancillary documentation was reviewed. [facility] Past Medical History Medical History [id number] deficiency Asthma Surgical History Surgical History H/O dilation and curettage H/O hand surgery H/O nasal polypectomy Family History Family History Father Diabetes mellitus Social History Social History Social History: Patient is single and has 2 children. 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 Code status full code Smoking status: Never smoker Alcohol intake: current Drinks per week: 2 Substance use: never Substance use type: does not use Do You Feel Safe in your Home?: Yes Lack of Transportation: No Lack of Food: Never True Current Housing: I Have Housing Concerned About Future Housing: No Difficulty Paying Gas/Electric Bills: No Difficulty Paying for Meds: YES Currently Unemployed: No Education: Bachelor's Degree Difficulty w/ Childcare or Family Care: No Spiritual care concerns: No Exam Narrative: GENERAL: Well-appearing, well-nourished, and in Mild acute respiratory distress. HEAD: Normocephalic, atraumatic. EYES: PERRLA and EOMI. ENT: Nares clear, no rhinorrhea or epistaxis. Mucous membranes moist. NECK: Supple. CHEST: scattered wheeze to auscultation. mild respiratory distress. HEART: Regular rate and rhythm. No murmur heard. Normal peripheral pulses. ABDOMEN: Soft, nontender, nondistended, normal active bowel sounds. EXTREMITIES: Normal range of motion. No edema. SKIN: Warm, dry, no rash. NEURO: No focal deficits. Alert and oriented x3. PSYCH: Normal mood and affect. Course Vital Signs Vital signs: Vital Signs Temperature 36.3 C L 11/30/23 19:46 Pulse Rate 155 H 11/30/23 19:46 Respiratory Rate 28 H 11/30/23 19:46 Blood Pressure 132/87 11/30/23 19:46 Pulse Oximetry 95 11/30/23 19:46 Oxygen Delivery Room Air 11/30/23 19:46 Temperature 36.3 C L 11/30/23 19:46 Pulse Rate 113 H 11/30/23 21:21 Respiratory Rate 18 11/30/23 21:2
[2023-11-30 22:22] VITALS: PULSE 110; RESP 18
== END 2023-11-30 23:06 | disposition home or self-care (01) ==
PROVIDERS: Emergency Provider Emergency Medicine
DX: J44.1 Chronic obstructive pulmonary disease with (acute) exacerbation (principal); Z20.822 Contact with and (suspected) exposure to COVID-19
CPT/HCPCS: 36415; 36600; 71045; 80053; 82805; 82810; 83605; 83735; 83880; 84145; 84484; 85025; 87637; 93005; 94640; 96365; 96366; 96375; 99284; J2919; J3475